=== PATIENT | male | born 1940 | race Caucasian/White ===

== ENCOUNTER 2017-04-10 18:16 | Emergency (ER) | payer MEDICARE, OTHER ==
[~2017-04-10] VITALS: Ht 172.7 cm; Wt 80.0 kg
[2017-04-10 18:18] VITALS: Ht 172.7 cm; Wt 80.0 kg
[2017-04-10 21:42] VITALS: TEMP 97.8
[2017-04-10] MEDS ORDERED: ALTEPLASE (CATHFLO) 2 MG INJ CATHETER ONE ×2 (22:00)
[2017-04-10] MEDS ORDERED: HEPARIN (100 UNITS/ML) 5 ML SYG CATHETER ONE ×2 (23:30)
[2017-04-11 00:27] VITALS: BP 109/59; PULSE 66; RESP 16
--- NOTE | 2017-04-11 01:35 | ERD ---
ER Documentation Chief Complaint Chief Complaint DIALYIS CATHETER NOT WORKING HPI 76-year-old male sent from dialysis for malfunctioning analysis catheter. Patient has a permanently placed dialysis catheter his left upper chest. Dialysis was completed however the dialysis nurse told him that it was slow because there is something possibly wrong with his catheter. He has had no fevers chills, shortness of breath and no other symptoms. He has had no pain at the site. ROS All systems reviewed and are negative except as per history of present illness. PMhx/Soc Anesthesia Reaction: No Hx Neurological Disorder: No Hx Respiratory Disorders: No Hx Cardiac Disorders: No Hx Psychiatric Problems: No Hx Alcohol Use: No Hx Substance Use: No Hx Tobacco Use: No Smoking Status: Never smoker Physical Exam Vitals Vital Signs Date Time Temp Pulse Resp B/P Pulse Ox O2 Delivery O2 Flow Rate FiO2 04/11/17 00:27 66 16 109/59 92 Room Air 04/10/17 21:42 97.8 78 16 105/71 98 Room Air 04/10/17 18:18 98.1 82 19 103/64 99 Physical Exam Const: [] No distress Head: Atraumatic Eyes: Normal Conjunctiva ENT: Normal External Ears, Nose and Mouth. Neck: Full range of motion..~ No meningismus. Resp: Clear to auscultation bilaterally Cardio: Regular rate and rhythm, no murmurs Skin: No petechiae or rashes Ext: No cyanosis, trace bilateral pedal edema, plus distal pulses intact all 4 extremities. Dialysis access site in upper chest clean dry and intact. No signs of infection Neur: Awake and alert and oriented 3, no focal deficits Psych: Normal Mood and Affect Results 24 hrs Current Medications Medications (Trade) Dose Ordered Sig/Cortes Route PRN Reason Start Time Stop Time Status Last Admin Dose Admin Alteplase, Recombinant (Cathflo (Activase)) 2 mg ONCE ONCE CATHETER 04/10/17 22:00 04/10/17 22:01 DC 04/10/17 22:08 Alteplase, Recombinant (Cathflo (Activase)) 2 mg ONCE ONCE CATHETER 04/10/17 22:00 04/10/17 22:01 DC 04/10/17 22:09 Heparin Sodium (Porcine) (Heparin Flush (100 Units/ml)) 500 unit ONCE ONCE CATHETER 04/10/17 23:30 04/10/17 23:31 DC 04/11/17 00:13 Heparin Sodium (Porcine) (Heparin Flush (100 Units/ml)) 500 unit ONCE ONCE CATHETER 04/10/17 23:30 04/10/17 23:31 DC 04/11/17 00:15 Procedures/MDM Functioning catheter after treatment in ER. Cathflo was placed into both ports of dialysis. After that the dialysis access site flushed well and had excellent blood return with no evident obstruction. Heparin was placed in both catheter sites. The patient is being discharged as currently his dialysis access is functioning very well. Dialysis was completed earlier today. Patient is in stable condition. Primary care follow-up in the next couple of days. Departure Diagnosis: Primary Impression: Complication of vascular access for dialysis Condition: Stable Patient Instructions: Dialysis Access Referrals: ANTONIO GUTIERREZ MD (PCP) Additional Instructions: Call your primary care doctor TOMORROW for an appointment during the next 1-2 days.See the doctor sooner or return here if your condition worsens before your appointment time. HAIR HOLLIDAY DO Apr 11, 2017 01:35
== END 2017-04-11 01:50 | disposition home or self-care (01) ==
LOC: E/R 18:16
DX: T82.49XA Other complication of vascular dialysis catheter, initial encounter (principal); Y65.8 Other specified misadventures during surgical and medical care
CPT/HCPCS: 99282; J1642; J2997

== ENCOUNTER 2017-04-12 19:46 | Inpatient (IN) | payer MEDICARE, OTHER ==
[~2017-04-12] VITALS: Ht 170.2 cm; Wt 76.8 kg
[2017-04-13] VITALS (30 sets, daily range): BP systolic 77–148; BP diastolic 45–88; PULSE 56–77; RESP 15–26; Ht 170.2 cm; Wt 76.8 kg
--- NOTE | 2017-04-13 00:24 | ERD ---
ER Documentation Chief Complaint Chief Complaint dialysis catheter not working right maicol catheter-call Li ma [facility] The patient is a 76-year-old male, presenting to the ER because of non- functional right chest hemodialysis catheter. He was seen 2 days ago for similar complaint. He came from dialysis today because he was unable to have dialysis due to nonworking catheter. He is a very poor historian, denies headache, neck pain, chest pain, dyspnea, abdominal pain, vomiting ROS All systems reviewed and are negative except as per history of present illness. Medications Home Meds Reported Medications Finasteride* (Finasteride*) 5 Mg Tablet, 5 MG PO DAILY, TAB 04/13/17 Oxybutynin Chloride* (Ditropan* XL) 10 Mg Tab.er.24, 10 MG PO DAILY, TAB.SA 04/13/17 Omeprazole* (Omeprazole*) 20 Mg Capsule.dr, 20 MG PO DAILY, #30 CAP 04/13/17 Losartan-Hydrochlorothiazide (Losartan-HCTZ) 50-12.5 Mg Tab, 1 TAB PO DAILY, TAB 04/13/17 Amlodipine Besylate* (Amlodipine Besylate*) 10 Mg Tablet, 10 MG PO DAILY, #30 TAB 04/13/17 Furosemide* (Furosemide*) 20 Mg Tablet, 20 MG PO DAILY, #60 TAB 04/13/17 Levothyroxine Sodium* (Levothyroxine Sodium*) 50 Mcg Tablet, 50 MCG PO BEFORE BREAKFAST, #30 TAB 04/13/17 Hydralazine Hcl* (Hydralazine Hcl*) 25 Mg Tab, 25 MG PO Q6, #120 TAB 04/13/17 Allergies Allergies: Coded Allergies: No Known Allergy (Unverified , 04/12/17) PMhx/Soc Anesthesia Reaction: No Hx Neurological Disorder: No Hx Respiratory Disorders: No Hx Cardiac Disorders: No Hx Psychiatric Problems: No Hx Alcohol Use: No Hx Substance Use: No Hx Tobacco Use: No Physical Exam Vitals Vital Signs Date Time Temp Pulse Resp B/P Pulse Ox O2 Delivery O2 Flow Rate FiO2 04/13/17 03:40 78 20 98/57 95 Nasal Cannula 2.0 04/13/17 03:33 94 2.0 28 04/13/17 03:33 59 20 94 Nasal Cannula 2.0 28 04/13/17 01:40 Nasal Cannula 2 04/13/17 00:30 72 18 110/67 95 Nasal Cannula 2.0 04/12/17 19:58 97.8 88 20 101/60 97 Physical Exam Const: No acute distress. Head: Atraumatic. Eyes: Normal Conjunctiva. ENT: Normal External Ears, Nose and Mouth. Neck: Full range of motion. No meningismus. Resp: Basilar crackle Cardio: Regular rate and rhythm. Abd: Soft, non distended, normal bowel sounds, non tender. Skin: No petechiae or rashes. Back: No midline or flank tenderness. Ext: No cyanosis, or edema. Neur: Awake and alert. No focal deficit Psych: Limited due to his condition Result Diagram: 04/13/1720904/13/17209 Results 24 hrs Laboratory Tests Test 04/13/17 02:10 White Blood Count 12.410^3/ul Red Blood Count 2.4510^6/ul Hemoglobin 6.9g/dl Hematocrit 21.8% Mean Corpuscular Volume 89.0fl Mean Corpuscular Hemoglobin 28.2pg Mean Corpuscular Hemoglobin Concent 31.7g/dl Red Cell Distribution Width 17.4% Platelet Count 87573^3/UL Mean Platelet Volume 9.8fl Neutrophils % 80.3% Lymphocytes % 8.2% Monocytes % 10.2% Eosinophils % 0.3% Basophils % 0.3% Nucleated Red Blood Cells % 0.0/100WBC Neutrophils # 10.010^3/ul Lymphocytes # 1.010^3/ul Monocytes # 1.310^3/ul Eosinophils # 0.010^3/ul Basophils # 0.010^3/ul Nucleated Red Blood Cells # 0.010^3/ul Prothrombin Time 14.7Sec Prothrombin Time Ratio 1.1 INR International Normalized Ratio 1.13 Activated Partial Thromboplast Time 41.9Sec Sodium Level 135mmol/L Potassium Level 5.9mmol/L Chloride Level 100mmol/L Carbon Dioxide Level 19mmol/L Anion Gap 22 Blood Urea Nitrogen 88mg/dl Creatinine 10.70mg/dl Glucose Level 71mg/dl Calcium Level 8.2mg/dl Current Medications Medications (Trade) Dose Ordered Sig/Cortes Route PRN Reason Start Time Stop Time Status Last Admin Dose Admin Dextrose/Sodium Chloride (D5-1/2ns) 1,000 ml @ 40 mls/hr Q24H IV 04/13/17 01:30 04/13/17 01:33 Sodium Polystyrene Sulfonate (Kayexalate) 30 gm ONCE ONCE PO 04/13/17 03:28 04/13/17 03:29 DC 04/13/17 03:43 Albuterol (Proventil 0.5% (Neb)) 15 mg ONCE ONCE INH 04/13/17 03:28 04/13/17 03:29 DC 04/13/17 03:33 Insulin Human Regular (Humulin R) 10 unit ONCE ONCE IV 04/13/17 03:28 04/13/17 03:29 DC 04/13/17 03:46 Dextrose (D50w Syringe) 50 ml ONCE ONCE IV 04/13/17 03:30 04/13/17 03:31 DC 04/13/17 03:44 Procedures/MDM [place] [id number] Radiology Main Line: [phone] DIAGNOSTIC IMAGING REPORT Patient: GUME HOWE : 1940 Age: 76 Sex: M MR #: [id number] DOS: 04/13/17 0101 Ordering MD: MOUSTAPHA VANEGAS MD Location: E/R Room/Bed: PROCEDURE: XR Chest. CLINICAL INDICATION: Chest pain TECHNIQUE: Single frontal view of the chest. COMPARISON: None. FINDINGS: Right central venous double-lumen dialysis catheter in place with tip in the superior vena cava right atrial junction. Cardiomegaly with atherosclerotic calcifications in the thoracic aorta. Pulmonary mass congestion and bilateral patchy air space disease with small bilateral pleural effusions. No signs of pleural fluid or pneumothorax are seen. The osseous structures and soft tissues are unremarkable. IMPRESSION: Moderate failure versus volume overload. RPTAT: [facility] Physician Cindy Date Time Electronically viewed and signed by Physician Cindy on 04/13/2017 01:42 RS/ CC: MOUSTAPHA VANEGAS MD EKG: Read by emergency physician Rate/Rhythm: Normal Sinus Rhythm 71 beats/min QRS, ST, T-waves: No ST elevation, no T inversion, PAC, PVC, LAD, low voltage Impression: Abnormal EKG MEDICAL MAKING DECISION: The patient is a 76-year-old male, presenting with acute fluid overload, acute hypokalemia, anemia. He was treated with 2 amp D50 IV, 10 units of regular insulin IV, Dilaudid 10 mg nebulizer, Kayexalate 30 g p.o. for acute hyperkalemia, unit of packed red blood cell for acute anemia The differential diagnoses for acute fluid overload considered include but are not limited to asthma, COPD, pneumonia, pulmonary embolus, pleural effusion, congestive heart failure. The differential diagnoses fpr acute anemia considered include but are not limited to gastritis, peptic ulcer disease, esophageal varices, Trina-Pérez tear, carcinoma, polyp, hemorrhoid, fissure, diverticulosis, angiodysplasia Critical Care: Time: 35 minutes excluding all billable procedures. Treatments/Evaluations: Close monitoring and treatment of unstable vital signs, cardiorespiratory, and neurologic status, while maintaining tight balance of fluid, respiratory, and cardiac interventions. . Departure Diagnosis: Primary Impression: Fluid overload Additional Impressions: Hyperkalemia Anemia Condition: Stable Comments I discussed the findings with the patient. I discussed the patient with the hospitalist Dr. Mcintyre at 3:30 AM who was made aware of the lab, the treatment, the patient condition. The patient is admitted to Tel Disclaimer: Inadvertent spelling and grammatical errors are likely due to EHR/ dictation software use and do not reflect on the overall quality of patient care. Also, please note that the electronic time recorded on this note does not necessarily reflect the actual time of the patient encounter. MOUSTAPHA VANEGAS MD Apr 13, 2017 00:24
[2017-04-13] MEDS: DEXTROSE 5%-0.45% NACL 1,000 ML IV SCH (01:33)
--- NOTE | 2017-04-13 01:43 | RADRPT ---
PROCEDURE: XR Chest. CLINICAL INDICATION: Chest pain TECHNIQUE: Single frontal view of the chest. COMPARISON: None. FINDINGS: Right central venous double-lumen dialysis catheter in place with tip in the superior vena cava righ t atrial junction. Cardiomegaly with atherosclerotic calcifications in the thoracic aorta. Pulmonary mass congestion an d bilateral patchy air space disease with small bilateral pleural effusions. No signs of pleural flu id or pneumothorax are seen. The osseous structures and soft tissues are unremarkable. IMPRESSION: Moderate failure versus volume overload. RPTAT: [facility] Physician Cindy Date Time Electronically viewed and signed by Physician Cindy on 04/13/2017 01:42 RS/
[2017-04-13 02:23] LABS: ABNORMAL IP MESSAGE 1; HEMATOCRIT 21.8 % (42.0-52.0); MEAN CORPUSCULAR HEMOGLOBIN 28.2 pg (29.0-33.0); MEAN CORPUSCULAR HGB CONC 31.7 g/dl (32.0-37.0); MEAN PLATELET VOLUME 9.8 fl (7.4-10.4); PLATELET COUNT 440 10^3/UL (140-415); POSITIVE DIFF @See below; RED BLOOD COUNT 2.45 10^6/ul (4.70-6.10); RED CELL DISTRIBUTION WIDTH 17.4 % (11.5-14.5); WHITE BLOOD COUNT 12.4 10^3/ul (4.8-10.8)
[2017-04-13 02:36] LABS: HEMOGLOBIN 6.9 g/dl (14.0-18.0)
[2017-04-13 02:41] LABS: BASOPHILS % 0.3 % (0.0-2.0); CALCIUM 8.2 mg/dl (8.4-10.2); CREATININE 10.7 mg/dl (0.61-1.24); EOSINOPHILS % 0.3 % (0.0-7.0); INR 1.13; LYMPHOCYTES % 8.2 % (15.0-51.0); MONOCYTE # 1.3 10^3/ul (0.3-0.9); MONOCYTES % 10.2 % (0.0-11.0); NEUTROPHILS % 80.3 % (39.0-77.0); POTASSIUM 5.9 mmol/L (3.5-5.1); PROTIME 14.7 Sec (11.9-14.9); PT RATIO 1.1
[2017-04-13 02:42] LABS: PARTIAL THROMBOPLASTIN TIME 41.9 Sec (25.0-35.0)
[2017-04-13] MEDS ORDERED: ALBUTEROL 0.5% (NEB) 2.5 MG/0.5 ML AMP INH ONE (03:28)
[2017-04-13] MEDS ORDERED: NA POLYST SULFON 15 GM/60 ML BTL PO ONE (03:28)
[2017-04-13] MEDS ORDERED: INSULIN REGULAR, HUMAN 100 UNIT/1 ML 3ML VIAL IV ONE (03:28)
[2017-04-13] MEDS ORDERED: DEXTROSE 50% 50 ML SYRINGE IV ONE ×2 (03:30→04:00)
[2017-04-13] MEDS ORDERED: FURO20TA3 PO (04:07)
[2017-04-13] MEDS ORDERED: LEVO50TA74 PO (04:07)
[2017-04-13] MEDS ORDERED: FINA5TAB4 PO (04:07)
[2017-04-13] MEDS ORDERED: LOSA1TAB22 PO (04:07)
[2017-04-13] MEDS ORDERED: HYDR-3671 PO (04:07)
[2017-04-13] MEDS ORDERED: AMLO-147 PO (04:07)
[2017-04-13] MEDS ORDERED: OXYB10TA6 PO (04:07)
[2017-04-13] MEDS ORDERED: OMEP20CA16 PO (04:07)
[2017-04-13] MEDS ORDERED: NACL 0.9% 3 ML SYG IV SCH (05:00)
[2017-04-13] MEDS ORDERED: ONDANSETRON 4 MG INJ IV PRN ×2 (05:00→15:00)
[2017-04-13] MEDS ORDERED: ACETAMINOPHEN 325 MG TAB PO PRN (05:00)
[2017-04-13] MEDS ORDERED: ALBUTEROL/IPRATROPIUM (NEB) 3 ML AMP HHN PRN (05:00)
[2017-04-13] MEDS ORDERED: morphine 2 MG INJ IV PRN (05:00)
[2017-04-13 06:36] LABS: ABNORMAL IP MESSAGE 1; HEMATOCRIT 21.5 % (42.0-52.0); MEAN CORPUSCULAR HEMOGLOBIN 28.3 pg (29.0-33.0); MEAN CORPUSCULAR HGB CONC 31.2 g/dl (32.0-37.0); MEAN CORPUSCULAR VOLUME 90.7 fl (82.0-101.0); MEAN PLATELET VOLUME 8.9 fl (7.4-10.4); PLATELET COUNT 447 10^3/UL (140-415); POSITIVE DIFF @See below; RED BLOOD COUNT 2.37 10^6/ul (4.70-6.10); RED CELL DISTRIBUTION WIDTH 17.4 % (11.5-14.5); WHITE BLOOD COUNT 11.5 10^3/ul (4.8-10.8)
[2017-04-13 06:48] LABS: HEMOGLOBIN 6.7 g/dl (14.0-18.0)
[2017-04-13 07:10] LABS: ALBUMIN 2.4 g/dl (3.3-4.9); ALBUMIN/GLOBULIN RATIO 0.66; CALCIUM 8.4 mg/dl (8.4-10.2); CREATININE 11.6 mg/dl (0.61-1.24); MAGNESIUM 2.2 mg/dl (1.7-2.5)
[2017-04-13 07:13] LABS: POTASSIUM 5.1 mmol/L (3.5-5.1)
[2017-04-13 07:16] LABS: IRON < 10 ug/dl (35-150)
[2017-04-13 08:15] LABS: TOTAL IRON BINDING CAPACITY 146 ug/dl (241-421)
[2017-04-13] MEDS ORDERED: SOD CHLORIDE 0.9% 250 ML IV* ONE (08:24)
[2017-04-13] MEDS: FINASTERIDE 5 MG TAB PO SCH (09:00)
[2017-04-13] MEDS: OXYBUTYNIN (XL) 5 MG TAB PO SCH (09:00)
[2017-04-13] MEDS: AMLODIPINE 10 MG TAB PO SCH (09:00)
--- NOTE | 2017-04-13 09:26 | HP ---
Date/Time of Note Date/Time of Note DATE: 04/13/17 TIME: 09:17 Assessment/Plan Lines/Catheters IV Catheter [facility] (from [facility]): Saline Lock Assessment/Plan Assessment/Plan 1. Dialysis catheter malfunction -Surgery and nephrology consult 2. ESRD on HD: Reportedly no dialysis for 5 days -Will be dialyzed after dialysis access is established 3. Hyperkalemia: Secondary to above -Correct as needed 4. Normocytic anemia -Transfuse blood -Check ferritin, iron and FOBT -Epogen per nephrology 5. Hypothyroidism Continue Synthroid HPI/ROS Admit Date/Time Admit Date/Time Apr 13, 2017 at 03:42 Hx of Present Illness This is a 76-year-old male with a history of hypertension, hypothyroidism, ESRD on HD who was sent to the ER for dialysis catheter malfunction. Reportedly patient has not had a dialysis for 5 days. When he presented to the ER, potassium 5.9, BUN 88, creatinine 10.7, hemoglobin 8.9, bicarb 19. Chest x-ray showed Moderate failure versus volume overload. Patient is a little upset that the he is admitted. He said he was actually fully dialyzed the other day but according to SNF he was not dialyzed for about 5 days. PMH/Family/Social Social History Smoking Status: Never smoker Exam/Review of Systems Vital Signs Vitals Vital Signs Date Time Temp Pulse Resp B/P Pulse Ox O2 Delivery O2 Flow Rate FiO2 04/13/17 06:59 98.5 62 18 99/50 95 Nasal Cannula 04/13/17 03:40 2.0 04/13/17 03:33 28 Exam Constitutional: alert, oriented, other (Appears slightly agitated) Head: atraumatic, normocephalic Eyes: PERRL Respiratory: diminished breath sounds Cardiovascular: regular rate and rhythm Gastrointestinal: non-tender, soft Extremities: normal pulses Labs Result Diagram: 04/13/1744 04/13/1744 Medications Medications Current Medications Dextrose/Sodium Chloride (D5-1/2ns) 1,000 ml @ 40 mls/hr Q24H IV Last administered on 04/13/17t 01:33; Admin Dose 40 MLS/HR; Start 04/13/17 at 01:30 Ondansetron HCl (Zofran Inj) 4 mg Q6H PRN IV NAUSEA AND/OR VOMITING; Start at 05:00 Acetaminophen (Tylenol Tab) 650 mg Q6H PRN PO PAIN LEVEL 1-3 OR FEVER; Start 04/13/17 at 05:00 Morphine Sulfate (morphine) 2 mg Q4H PRN IV PAIN LEVEL 7-10; Start 04/13/17 at 05:00 Amlodipine Besylate (Norvasc) 10 mg DAILY PO ; Start 04/13/17 at 09:00 Finasteride (Proscar) 5 mg DAILY PO ; Start 04/13/17 at 09:00 Hydralazine HCl (Apresoline) 25 mg Q6 PO ; Start 04/13/17 at 06:00 Oxybutynin Chloride (Ditropan Xl) 10 mg DAILY PO ; Start 04/13/17 at 09:00 Pantoprazole (Protonix Tab) 40 mg DAILY@06 PO ; Start 04/14/17 at 06:00 Furosemide (Lasix) 40 mg DAILY@06 IV ; Start 04/13/17 at 06:00 LUIS ASHFORD MD Apr 13, 2017 09:26
[2017-04-13 09:51] LABS: ANISOCYTOSIS 1+ (0-0); MONOCYTES % (M) 9 % (0-11); PLATELET ESTIMATE NORMAL; POIKILOCYTOSIS 3+ (0-0); POLYCHROMASIA 3+ (0-0); REACTIVE LYMPHOCYTES% (M) 2 % (0-0)
[2017-04-13] MEDS: FUROSEMIDE 40 MG INJ IV SCH (10:02)
[2017-04-13] MEDS: LEVOTHYROXINE 50 MCG TAB PO SCH (10:16)
--- NOTE | 2017-04-13 10:38 | CONS ---
Date/Time of Note Date/Time of Note DATE: 04/13/17 TIME: 10:38 Assessment/Plan Assessment/Plan Additional Assessment/Plan 1. Acute Hyperkalemia due to missed HD x 5 days 2. Dialysis catheter malfunction- missed HD for 5 days 2. Severe Anemia with Hb 6.3- possible GI bleeding 3. ESRD on HD MWF 4. HTN 5. HL 6. 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 h/o Hypothyroidism Plan: plan is to exchange permacath today Plan is to HD today with 2 units pRBC BP stable afebrile GI consult to see pt Thanks for consultation, we will conitnue to follow up on patient Consultation Date/Type/Reason Admit Date/Time Apr 13, 2017 at 03:42 Date of Consultation: Apr 13, 2017 Type of Consultation: NEPHROLOGY Reason for Consultation Non functioning HD catherer, No HD x 5 days, missed HD Referring Provider: LUIS ASHFORD MD Hx of Present Illness 76-year-old male with a history of hypertension, hypothyroidism, ESRD on HD who was sent to the ER for dialysis catheter malfunction. Reportedly patient has not had a dialysis for 5 days. When he presented to the ER, potassium 5.9, BUN 88, creatinine 10.7, hemoglobin 8.9, bicarb 19. Chest x-ray showed Moderate failure versus volume overload. Patient is a little upset that the he is admitted. He said he was actually fully dialyzed the other day but according to SNF he was not dialyzed for about 5 days. plan is to do replacement of permacth then HD after that . Constitutional: no complaints Eyes: no complaints ENT: no complaints Respiratory: no complaints Cardiovascular: no complaints Gastrointestinal: no complaints Genitourinary: no complaints Musculoskeletal: no complaints Skin: no complaints Neurologic: no complaints Endocrine: no complaints Lymphatic: no complaints Psychological: no complaints Immunologic: no complaints Past Medical History Medical History: coronary artery disease, high cholesterol, hypertension, other (ESRD on HD , prosate CA S/p TURP ) Past Surgical History Past Surgical Hx: other (TURP, Permacath access) Family History Significant Family History: no pertinent family hx Social History Alcohol Use: none Smoking Status: Never smoker Drug Use: none Exam/Review of Systems Vital Signs Vitals Vital Signs Date Time Temp Pulse Resp B/P Pulse Ox O2 Delivery O2 Flow Rate FiO2 04/13/17 06:59 98.5 62 18 99/50 95 Nasal Cannula 04/13/17 03:40 2.0 04/13/17 03:33 28 Exam Constitutional: alert Psych: no complaints Head: normocephalic Eyes: nl conjunctiva ENMT: nl external ears & nose Neck: non-tender, supple Respiratory: clear to auscultation, diminished breath sounds, normal air movement Cardiovascular: nl pulses, regular rate and rhythm Gastrointestinal: non-tender, soft Musculoskeletal: nl extremities to inspection, nl gait and stance Extremities: normal pulses Neurological: ONCOLOGY RN II-XII intact, nl mental status, nl speech, nl strength Skin: nl turgor Results Result Diagram: 04/13/1744 04/13/17 0544 Results 24 hrs Laboratory Tests Test 04/13/17 02:10 04/13/17 05:44 White Blood Count 12.4 H 11.5 H Red Blood Count 2.45 L 2.37 L Hemoglobin 6.9 *L 6.7 *L Hematocrit 21.8 L 21.5 L Mean Corpuscular Volume 89.0 90.7 Mean Corpuscular Hemoglobin 28.2 L 28.3 L Mean Corpuscular Hemoglobin Concent 31.7 L 31.2 L Red Cell Distribution Width 17.4 H 17.4 H Platelet Count 440 H 447 H Mean Platelet Volume 9.8 8.9 Neutrophils % 80.3 H Lymphocytes % 8.2 L Monocytes % 10.2 Eosinophils % 0.3 Basophils % 0.3 Nucleated Red Blood Cells % 0.0 0.0 Neutrophils # 10.0 H Lymphocytes # 1.0 Monocytes # 1.3 H Eosinophils # 0.0 Basophils # 0.0 Nucleated Red Blood Cells # 0.0 Prothrombin Time 14.7 Prothrombin Time Ratio 1.1 INR International Normalized Ratio 1.13 Activated Partial Thromboplast Time 41.9 H Sodium Level 135 137 Potassium Level 5.9 H 5.1 Chloride Level 100 98 Carbon Dioxide Level 19 L 19 L Anion Gap 22 H 25 H Blood Urea Nitrogen 88 H 88 H Creatinine 10.70 H 11.60 H Glucose Level 71 90 Calcium Level 8.2 L 8.4 Segmented Neutrophils % (Manual) 76 Band Neutrophils % (Manual) 11 H Lymphocytes % (Manual) 2 L Reactive Lymphocytes % (Manual) 2 H Monocytes % (Manual) 9 Neutrophils # (Manual) 8.9 H Band Neutrophils # 1.2 H Absolute Lymphocytes (Manual) 0.2 L Reactive Lymphocytes # 0.2 H Absolute Monocytes (Manual) 1.0 H Platelet Estimate NORMAL Polychromasia 3+ Poikilocytosis 3+ Anisocytosis 1+ Magnesium Level 2.2 Iron Level < 10 L Total Iron Binding Capacity 146 L Percent Iron Saturation Ferritin 545.0 H Total Bilirubin 0.0 L Direct Bilirubin 0.00 Indirect Bilirubin 0.0 Aspartate Amino Transf (AST/SGOT) 17 Alanine Aminotransferase (ALT/SGPT) 14 Alkaline Phosphatase 104 Total Protein 6.0 L Albumin 2.4 L Globulin 3.60 H Albumin/Globulin Ratio 0.66 Medications Medications Current Medications Dextrose/Sodium Chloride (D5-1/2ns) 1,000 ml @ 40 mls/hr Q24H IV Last administered on 04/13/17 01:33; Admin Dose 40 MLS/HR; Start 04/13/17 at 01:30 Ondansetron HCl (Zofran Inj) 4 mg Q6H PRN IV NAUSEA AND/OR VOMITING; Start at 05:00 Acetaminophen (Tylenol Tab) 650 mg Q6H PRN PO PAIN LEVEL 1-3 OR FEVER; Start 04/13/17 at 05:00 Morphine Sulfate (morphine) 2 mg Q4H PRN IV PAIN LEVEL 7-10; Start 04/13/17 at 05:00 Amlodipine Besylate (Norvasc) 10 mg DAILY PO ; Start 04/13/17 at 09:00 Finasteride (Proscar) 5 mg DAILY PO ; Start 04/13/17 at 09:00 Hydralazine HCl (Apresoline) 25 mg Q6 PO ; Start 04/13/17 at 06:00 Oxybutynin Chloride (Ditropan Xl) 10 mg DAILY PO ; Start 04/13/17 at 09:00 Pantoprazole (Protonix Tab) 40 mg DAILY@06 PO ; Start 04/14/17 at 06:00 Furosemide (Lasix) 40 mg DAILY@06 IV Last administered on 04/13/17 10:02; Admin Dose 40 MG; Start 04/13/17 at 06:00 ANTONIO GUTIERREZ MD Apr 13, 2017 10:38
[2017-04-13 14:27] LABS: HEMATOCRIT 23.7 % (42.0-52.0); HEMOGLOBIN 7.6 g/dl (14.0-18.0)
[2017-04-13] MEDS ORDERED: HEPARIN 1000 UNITS/ML 10 ML INJ ONE ×2 (14:34→15:34)
[2017-04-13] MEDS ORDERED: LIDOCAINE 1% (MPF) 30 ML INJ ONE (14:34)
[2017-04-13] MEDS ORDERED: IOHEXOL 300MG/ML 30 ML BTL ONE (14:42)
[2017-04-13] MEDS ORDERED: FENTAnyl 50 MCG/ML VIAL IV PRN (15:00)
[2017-04-13] MEDS ORDERED: PROPOFOL 0 ML ONE (15:14)
[2017-04-13] MEDS ORDERED: LIDOCAINE 1% (MDV) 20 ML INJ ONE (15:15)
[2017-04-13] MEDS ORDERED: FENTAnyl 50 MCG/ML VIAL ONE (15:15)
[2017-04-13] MEDS ORDERED: MIDAZOLAM 1 MG/ML 2 ML INJ ONE (15:20)
[2017-04-13] MEDS ORDERED: BUPIVACAINE 0.5% (SDV) 30 ML INJ ONE (15:24)
[2017-04-13] MEDS ORDERED: CEFAZOLIN 1 GM INJ ONE (15:26)
--- NOTE | 2017-04-13 16:10 | HPN ---
Date/Time of Note Date/Time of Note DATE: 04/13/17 TIME: 16:10 Interval H&P Admission Note Pt. seen H&P reviewed: No system changes DARLINE CANCINO MD Apr 13, 2017 16:10
--- NOTE | 2017-04-13 16:11 | SIPON ---
Date/Time of Note Date/Time of Note DATE: 04/13/17 TIME: 16:10 Operative Report Preoperative Diagnosis ESRD, CENTRAL STENOSIS, MALFUNCTIONING CATHETER Postoperative Diagnosis SAME Operation/Procedure Performed CENTRAL VENOGRAM, CENTRAL VENOPLASTY, TUNNELLED CATHETER EXCHANGE Surgeon see signature line criminal legal assistant NONE Anesthesia: moderate sedation Estimated blood loss: minimal Transfusion Required none Specimen NONE Grafts/Implants none Complications none DARLINE CANCINO MD Apr 13, 2017 16:11
--- NOTE | 2017-04-13 17:52 | CONS ---
DATE OF ADMISSION: 04/13/2017 DATE OF CONSULTATION: 04/13/2017 TYPE OF CONSULTATION: Vascular surgery consultation. Dear Doctors: Mr. Castellon is a 76-year-old gentleman known to our his vascular surgery service with a history of end- stage renal disease on hemodialysis in which he had a recent right chest wall catheter exchanged at an outside hospital. It seems that the patient had a new presentation with a catheter malfunction. The patient unfortunately had not received dialysis for about 5 days and required emergent evaluati on for a new catheter placement and dialysis. Vascular surgery consultation was obtained for furthe r evaluation. Also, the patient has a recent diagnosis of cancer that is being managed as an outpat ient. REVIEW OF SYSTEMS: A 14-point review performed and negative except what is mentioned in the HPI. T he patient currently complains of difficulty breathing, denies chest pain, no nausea, vomiting, feve r or chills. Denies upper or lower extremity claudication or rest pain-like symptoms at the moment. PAST MEDICAL HISTORY: Entails hypertension, hypothyroidism, end-stage renal disease on hemodialysis , anemia of chronic disease, pulmonary hypertension, bilateral lower extremity atherosclerosis. The patient has a history of metastatic prostate cancer in which he had undergone prostatectomy and on chemotherapy at the moment. PAST SURGICAL HISTORY: Multiple chest wall catheters, prostatectomy. FAMILY HISTORY: Positive for hypertension. SOCIAL HISTORY: active currently a smoker. Denies illicit drug use, alcohol abuse. PHYSICAL EXAMINATION: GENERAL: Alert and oriented x3, no apparent distress. HEENT: Normocephalic, atraumatic. Poor dentition. Mucosa moist. NECK: Supple. No carotid bruit. PULMONARY: Crackles at the bases with coarse breath sounds bilaterally. CARDIOVASCULAR: S1, S2 present. No murmurs. ABDOMEN: Soft, nontender, nondistended. Bowel sounds positive. Surgical scar well healed. EXTREMITIES: Lower extremities, palpable femoral pulse, nonpalpable pedal pulse. Motor, sensory in tact. Cap refill 3 to 4 seconds. No ulcers identified. Right chest wall catheter intact and nonfunctional, no erythema or pus identified. ASSESSMENT AND PLAN: End-stage renal disease and central stenosis: It seems the patient's catheter has malfunctioned and patient unfortunately has not received dialysis for 5 days. Further, the pat ient is noncompliant and sometimes challenging, as he does not necessarily follow recommendations an d take care of his health. The patient has been a smoker also in the past and upon our previous isreal luation at outside hospital, patient had significant central stenosis in which he had underwent cent ral venoplasty and intervention at that time. Unfortunately, the patient seems to have a catheter m alfunction which is unclear if the patient has been, after his dialysis sessions, receiving adequate flushing of the catheter with saline and adequate heparin not being placed in the ports at his dial ysis center. We will plan to schedule the patient for an emergent permanent catheter hemodialysis evaluation and exchange, possible central venoplasty. Optimize vascular status (BP meds, diet, nutrition, exercise, sugar control, antiplatelets). I discussed the importance of compliance and smoking cessation and all the necessary information has been provided for the patient. Discussed findings, plan and management with the patient and all that is involved patient understood and has agreed to proceed. Total spent time was greater than 25 minutes. Thank you for allowing us to partake in the care of your patient. Please call with any questions. Dictated By: DARLINE KING/EMILIA Conf#: [id number] DID#: [id number] CC: LUIS ASHFORD MD;*EndCC*
--- NOTE | 2017-04-13 17:52 | CONS ---
DATE OF ADMISSION: 04/13/2017 DATE OF CONSULTATION: TYPE OF CONSULTATION: Gastroenterology. REFERRING PHYSICIAN: Dr. Antonio Gutierrez. Dear Antonio: HISTORY OF PRESENT ILLNESS: Thank you for asking me to evaluate the patient who is 76-year-old male with a history of hypertension, hypothyroidism, end-stage renal disease on dialysis, comes to the E R for malfunctioning of the dialysis catheter. The patient has not had a dialysis for the last 5 da ys. When he arrived in the ER, his BUN was 88, creatinine was 10.5 and his hemoglobin was low. GI consult was called in for severe anemia. The patient is not a very good historian, but he denied of any abdominal pain, no nausea, no vomiting, no GI bleeding, no hematemesis. No chest pain or short ness of breath. SOCIAL HISTORY: No history of smoking or alcohol consumption. REVIEW OF SYSTEMS: Negative. PHYSICAL EXAMINATION: GENERAL: Well-built, nourished, not in distress. VITAL SIGNS: Stable. HEENT: Unremarkable. NECK: Supple, no thyromegaly, no lymphadenopathy. CARDIOVASCULAR: No murmur, gallop or click. LUNGS: Clear. ABDOMEN: Benign. EXTREMITIES: No edema. CENTRAL NERVOUS SYSTEM: Grossly within normal limits. LABORATORY DATA: INR is normal, hematocrit is 21.5. WBC is 11.5, platelet count normal, normochrom ic normocytic pattern. BUN is 88, creatinine is 11.6. Iron saturation is low. Ferritin was 545. IMPRESSION: 1. Anemia needs to be ruled out, whether it is anemia of chronic disease or due to the occult gastr ointestinal bleeding. 2. Renal failure on hemodialysis, did not have dialysis for the last 5 days. 3. Hypertension. 4. Malfunctioning of the dialysis catheter. 5. Hypothyroidism. PLAN: Transfuse 1 unit of packed cell RBC, change of the dialysis catheter and work him up for anem ia. In the interim, place empirically on PPI and will follow the patient. Dictated By: JEANNETTE NTAH/NTS Conf#: [id number] DID#: [id number] CC: ANTONIO GUTIERREZ MD; LUIS ASHFORD MD;*EndCC*
--- NOTE | 2017-04-13 17:52 | OPR ---
DATE OF OPERATION: 04/13/2017 PREOPERATIVE DIAGNOSIS: End-stage renal disease, central stenosis and occlusion and malfunctioning right chest wall catheter. POSTOPERATIVE DIAGNOSIS: End-stage renal disease, central stenosis and occlusion and malfunctioning right chest wall catheter. ANESTHESIA: Local with moderate sedation. ESTIMATED BLOOD LOSS: Minimal. COMPLICATIONS: None. HEPARIN: As recorded. CONTRAST: As recorded. ACCESS: Right internal jugular vein. CLOSURE: Manual compression and 3-0 nylon suture. INDICATIONS: This is a 76-year-old gentleman who had presented to us with a history of end-stage re nal disease on hemodialysis and noncompliance, in which he had developed malfunctioning catheter ove r the past week. The patient has not received dialysis for about 5 days and had required an emergen t evaluation for possible catheter exchange and being able to undergo dialysis. The patient at the moment has hyperkalemia and is also under chemotherapy from his recent metastatic prostate cancer. Therefore, alternatives, risk and benefits were discussed with the patient and he has agreed to proc eed, understanding all that is involved. Risks including but not limited to bleeding, thrombosis, e mbolization, myocardial infarction, , stroke, device malfunction, infection, nephrotoxicity, or pneumothorax, and the patient has agreed to proceed. PROCEDURE: 1. SVC venogram. 2. Catheter-directed access of the SVC. 3. Venoplasty of the right internal jugular vein, right brachiocephalic vein, right superior vena c peter (multiple venous angioplasties). 4. Tunneled permanent hemodialysis catheter exchange. 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 DESCRIPTION OF PROCEDURE: The patient was brought into the operating room and positioned in supine position on the operating room table. Sedation was administered with our anesthesia colleagues with out any complications. The right chest was then shaved, prepped and draped in usual standard steril e fashion. Time out and appropriate sites were marked and confirmed. Local anesthesia was infiltra ata in the region of the right chest wall. Preoperative antibiotics were already given. At this po int, using the venous port of the catheter, Amplatz wire was placed in the distal superior vena cava . At this point, the catheter was pulled back to the internal jugular vein, subclavian vein junctio n and a central venogram evaluating the SVC was performed. It identified patient having severe sten osis of the right internal jugular vein, right brachiocephalic vein and right superior vena cava in its proximal aspect. Therefore, decision was made to intervene with performing a venoplasty prior t o placement of a new catheter as this could have been the cause of the malfunction of the catheter. Subsequently, the catheter was removed. After the catheter was removed, we went ahead and cleaned the wire with an alcohol prep. All gloves were changed and then we went ahead and used the guiding catheter which was placed in the SVC in order to guide the wire down to the inferior vena cava. Onc e this was performed, a second wire was also placed, performing the same function. At this point, u sing a 12 mm x 60 mm balloon, we performed venoplasty of the right internal jugular vein, right brac hiocephalic vein, and the right superior vena cava. Patient tolerated this aspect of the procedure well. At this point, the balloon was removed and a new PermCath catheter was placed measuring 23 cm . This procedure was done under fluoroscopic guidance with our balloon intervention and our cathete r removal and exchange. The patient tolerated this aspect of the procedure well and was taken to e postanesthesia care unit in stable condition. The catheter was then secured with a 3-0 nylon sutu re. All sponges, needles, catheters and wires counts were correct x2. Dictated By: DARLINE KING/EMILIA Conf#: [id number] DID#: [id number] CC: LUIS ASHFORD MD;*End*
--- NOTE | 2017-04-13 17:52 | RADRPT ---
PROCEDURE: Intraoperative imaging of the chest. CLINICAL INDICATION: Check line placement. TECHNIQUE: Images of the chest were obtained in the operating room with an image intensifier. No radiologist was in attendance. 6images of the chest were obtained with the image intensifier. Flu oroscopy time is 160 seconds. COMPARISON: Chest x-ray done earlier the same day. FINDINGS: Images demonstrate contrast injected through a tunneled dialysis catheter with the tip in the superi or vena cava. 1 of the images has a balloon inflated in the superior vena cava. IMPRESSION: 1. Satisfactory intraoperative imaging of the chest. RPTAT: QQ .Olman Barahona MD, MD Date Time Electronically viewed and signed by .Olman Barahona MD, MD on 04/13/2017 16:34 .R/
[2017-04-13] MEDS ORDERED: ALBUMIN HUMAN 25% 100 ML IV ONE (18:00)
[2017-04-14] VITALS (13 sets, daily range): BP systolic 91–105; BP diastolic 48–65; PULSE 54–75; RESP 17–20
[2017-04-14] MEDS: DEXTROSE 5%-0.45% NACL 1,000 ML IV SCH (01:29)
[2017-04-14] MEDS: FUROSEMIDE 40 MG INJ IV SCH (05:22)
[2017-04-14] MEDS: PANTOPRAZOLE (EC) 40 MG TAB PO SCH (05:23)
[2017-04-14] MEDS: LEVOTHYROXINE 50 MCG TAB PO SCH (05:23)
[2017-04-14 07:04] LABS: RETICULOCYTE COUNT % 1.2 % (0.5-1.5)
[2017-04-14 07:05] LABS: BASOPHIL # 0.1 10^3/ul (0.0-0.1); BASOPHILS % 0.5 % (0.0-2.0); EOSINOPHILS # 0.2 10^3/ul (0.0-0.5); HEMATOCRIT 25.1 % (42.0-52.0); HEMOGLOBIN 8.2 g/dl (14.0-18.0); LYMPHOCYTES % 10.2 % (15.0-51.0); MEAN CORPUSCULAR HEMOGLOBIN 28.1 pg (29.0-33.0); MEAN CORPUSCULAR HGB CONC 32.7 g/dl (32.0-37.0); MEAN PLATELET VOLUME 8.9 fl (7.4-10.4); NEUTROPHIL # 7.6 10^3/ul (1.6-7.5); NEUTROPHILS % 76.5 % (39.0-77.0); PLATELET COUNT 387 10^3/UL (140-415); RED BLOOD COUNT 2.92 10^6/ul (4.70-6.10); RED CELL DISTRIBUTION WIDTH 16.7 % (11.5-14.5); WHITE BLOOD COUNT 9.9 10^3/ul (4.8-10.8)
[2017-04-14 07:36] LABS: CALCIUM 8.2 mg/dl (8.4-10.2); CREATININE 9.01 mg/dl (0.61-1.24)
[2017-04-14 07:43] LABS: IRON 11 ug/dl (35-150)
[2017-04-14 07:46] LABS: TOTAL IRON BINDING CAPACITY 139 ug/dl (241-421)
[2017-04-14] MEDS: AMLODIPINE 10 MG TAB PO SCH (08:09)
[2017-04-14] MEDS: FINASTERIDE 5 MG TAB PO SCH (08:46)
[2017-04-14] MEDS: OXYBUTYNIN (XL) 5 MG TAB PO SCH (08:46)
[2017-04-14] MEDS ORDERED: INFLUENZA VIRUS VACCINE 0.5 ML SYG IM* ONE (09:00)
--- NOTE | 2017-04-14 10:51 | PN ---
Date/Time of Note Date/Time of Note DATE: 04/14/17 TIME: 10:42 Assessment/Plan VTE Prophylaxis VTE Prophylaxis Intervention: SCD's Lines/Catheters IV Catheter Type (from [facility]): Peripheral IV Urinary Cath still in place: No Assessment/Plan Chief Complaint/Hosp Course S: Patient has his PermCath exchange performed yesterday. Also received blood transfusion yesterday. As well as dialysis was performed yesterday. Patient asking about his Percocet medications he apparently takes at the [facility] facility per O: VS (see below) PE: Constitutional: alert, oriented Head: atraumatic, normocephalic Eyes: PERRL Respiratory: less diminished breath sounds Cardiovascular: regular rate and rhythm Gastrointestinal: non-tender, soft Extremities: normal pulses A/P: 76-year-old male with a history of hypertension, hypothyroidism, ESRD on HD who was sent to the ER for dialysis catheter malfunction. 1. Dialysis catheter malfunction -status post replacement by vascular surgery team yesterday. -Continue per renal recommendations dialysis, follow-up surgery and nephrology consult recommendation 2. ESRD on HD: Reportedly no dialysis for 5 days -after getting her placement yesterday received dialysis yesterday -Dialysis per renal recommendations 3. Hyperkalemia: Secondary to above -improving -Correct as needed, dialysis 4. Normocytic anemia -status post PRBC transfusion yesterday -Monitor, consider IV iron as well given low iron levels -Epogen per nephrology 5. Hypothyroidism Continue Synthroid Problems: Exam/Review of Systems Vital Signs Vitals Vital Signs Date Time Temp Pulse Resp B/P Pulse Ox O2 Delivery O2 Flow Rate FiO2 04/14/17 08:06 59 04/14/17 08:00 Nasal Cannula 2.0 04/14/17 07:17 98.6 19 101/57 97 04/13/17 03:33 28 Intake and Output 04/13/17 04/13/17 04/14/17 14:59 22:59 06:59 Intake Total 650 ml 300 ml Output Total 3510 ml Balance -2860 ml 300 ml Results Result Diagram: 04/14/17 0639 04/14/17 0639 Results 24 hrs Laboratory Tests Test 04/13/17 14:18 04/14/17 05:41 04/14/17 06:39 Hemoglobin 7.6 L 8.2 L Hematocrit 23.7 L 25.1 L Lab Scanned Report BLOOD TRANSFUSION White Blood Count 9.9 Red Blood Count 2.92 #L Mean Corpuscular Volume 86.0 Mean Corpuscular Hemoglobin 28.1 L Mean Corpuscular Hemoglobin Concent 32.7 Red Cell Distribution Width 16.7 H Platelet Count 387 Mean Platelet Volume 8.9 Neutrophils % 76.5 Lymphocytes % 10.2 L Monocytes % 10.0 Eosinophils % 2.0 Basophils % 0.5 Nucleated Red Blood Cells % 0.0 Neutrophils # 7.6 H Lymphocytes # 1.0 Monocytes # 1.0 H Eosinophils # 0.2 Basophils # 0.1 Nucleated Red Blood Cells # 0.0 Absolute Reticulocyte Count 0.033 Percent Reticulocyte Count 1.2 Sodium Level 140 Potassium Level 4.0 Chloride Level 100 Carbon Dioxide Level 24 Anion Gap 20 H Blood Urea Nitrogen 60 H Creatinine 9.01 #H Glucose Level 87 Calcium Level 8.2 L Iron Level 11 L Total Iron Binding Capacity 139 L Percent Iron Saturation 8 L Ferritin 486.0 H Vitamin B12 Level 989 H Medications Medications Current Medications Dextrose/Sodium Chloride (D5-1/2ns) 1,000 ml @ 40 mls/hr Q24H IV Last administered on 04/14/17 01:29; Admin Dose 40 MLS/HR; Start 04/13/17 at 01:30 Ondansetron HCl (Zofran Inj) 4 mg Q6H PRN IV NAUSEA AND/OR VOMITING; Start at 05:00 Acetaminophen (Tylenol Tab) 650 mg Q6H PRN PO PAIN LEVEL 1-3 OR FEVER; Start 04/13/17 at 05:00 Morphine Sulfate (morphine) 2 mg Q4H PRN IV PAIN LEVEL 7-10; Start 04/13/17 at 05:00 Amlodipine Besylate (Norvasc) 10 mg DAILY PO ; Start 04/13/17 at 09:00 Finasteride (Proscar) 5 mg DAILY PO Last administered on 04/14/17 08:46; Admin Dose 5 MG; Start 04/13/17 at 09:00 Hydralazine HCl (Apresoline) 25 mg Q6 PO ; Start 04/13/17 at 06:00 Oxybutynin Chloride (Ditropan Xl) 10 mg DAILY PO Last administered on 08:46; Admin Dose 10 MG; Start 04/13/17 at 09:00 Pantoprazole (Protonix Tab) 40 mg DAILY@06 PO Last administered on 04/14/17 05:23; Admin Dose 40 MG; Start 04/14/17 at 06:00 Furosemide (Lasix) 40 mg DAILY@06 IV Last administered on 04/13/17 10:02; Admin Dose 40 MG; Start 04/13/17 at 06:00 ORI SPEAR Apr 14, 2017 10:51
[2017-04-14] MEDS: OXYCODONE/ACETAMINOPHEN (5/325) TAB PO PRN (12:34)
[2017-04-14] MEDS ORDERED: GUAIFENESIN/DM 5ML CUP PO PRN (14:00)
--- NOTE | 2017-04-14 15:04 | RADRPT ---
PROCEDURE: XR Chest. CLINICAL INDICATION: Cough. TECHNIQUE: Single frontal view. COMPARISON: April 13, 2017. FINDINGS: There is a tunneled right internal jugular vein dialysis catheter with the tip in the cavoatrial amparo ction region. There is mild interstitial disease bilaterally consistent with pulmonary edema, unchan ged. Bibasilar atelectasis is unchanged. The lungs are otherwise clear. The heart is mildly enlarged. There is calcification in the aorta consistent with atherosclerosis. There is no pleural effusion. There is no pneumothorax. IMPRESSION: 1. No significant change from the April 13, 2017 chest radiograph. RPTAT: QQ .Olman Barahona MD, MD Date Time Electronically viewed and signed by .Olman Barahona MD, MD on 04/14/2017 15:04 .R/
--- NOTE | 2017-04-14 17:25 | CONS ---
Date/Time of Note Date/Time of Note DATE: 04/14/17 TIME: 17:23 Assessment/Plan Assessment/Plan Additional Assessment/Plan IMPRESSION: 1. Anemia needs to be ruled out, whether it is anemia of chronic disease or due to the occult gastrointestinal bleeding. 2. Renal failure on hemodialysis, did not have dialysis for the last 5 days. 3. Hypertension. 4. Malfunctioning of the dialysis catheter. 5. Hypothyroidism. 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 His anemia might be related to anemia of chronic disease or secondary to metastases in the bone. Awaiting for stool for occult blood Consultation Date/Type/Reason Admit Date/Time Apr 13, 2017 at 03:42 Initial Consult Date 04/13/17 Type of Consultation: NEPHROLOGY Referring Provider: LUIS ASHFORD MD 24 HR Interval Summary Constitutional: no complaints Exam/Review of Systems Vital Signs Vitals Vital Signs Date Time Temp Pulse Resp B/P Pulse Ox O2 Delivery O2 Flow Rate FiO2 04/14/17 16:00 58 04/14/17 15:24 98.4 19 104/58 96 04/14/17 08:00 Nasal Cannula 2.0 04/13/17 03:33 28 Intake and Output 04/13/17 04/13/17 04/14/17 15:00 23:00 07:00 Intake Total 650 ml 300 ml Output Total 3510 ml Balance -2860 ml 300 ml Exam Constitutional: alert, oriented, well developed Psych: nl mood/affect, no complaints Head: atraumatic, normocephalic Eyes: EOMI, PERRL, nl conjunctiva, nl lids, nl sclera ENMT: nl external ears & nose, nl lips & teeth, nl nasal mucosa & septum Neck: non-tender, supple Respiratory: clear to auscultation, normal air movement Cardiovascular: nl pulses, regular rate and rhythm Gastrointestinal: nl liver, spleen, non-tender, soft Musculoskeletal: nl extremities to inspection, nl gait and stance Extremities: normal pulses Neurological: POWDER GUARD II-XII intact, nl mental status, nl speech, nl strength Skin: nl turgor, No rash or lesions Lymph: nl lymph nodes Results Result Diagram: 04/14/17 0639 04/14/17 0639 Results 24 hrs Laboratory Tests Test 04/14/17 05:41 04/14/17 06:39 Lab Scanned Report BLOOD TRANSFUSION White Blood Count 9.9 Red Blood Count 2.92 #L Hemoglobin 8.2 L Hematocrit 25.1 L Mean Corpuscular Volume 86.0 Mean Corpuscular Hemoglobin 28.1 L Mean Corpuscular Hemoglobin Concent 32.7 Red Cell Distribution Width 16.7 H Platelet Count 387 Mean Platelet Volume 8.9 Neutrophils % 76.5 Lymphocytes % 10.2 L Monocytes % 10.0 Eosinophils % 2.0 Basophils % 0.5 Nucleated Red Blood Cells % 0.0 Neutrophils # 7.6 H Lymphocytes # 1.0 Monocytes # 1.0 H Eosinophils # 0.2 Basophils # 0.1 Nucleated Red Blood Cells # 0.0 Absolute Reticulocyte Count 0.033 Percent Reticulocyte Count 1.2 Sodium Level 140 Potassium Level 4.0 Chloride Level 100 Carbon Dioxide Level 24 Anion Gap 20 H Blood Urea Nitrogen 60 H Creatinine 9.01 #H Glucose Level 87 Calcium Level 8.2 L Iron Level 11 L Total Iron Binding Capacity 139 L Percent Iron Saturation 8 L Ferritin 486.0 H Vitamin B12 Level 989 H Medications Medications Current Medications Ondansetron HCl (Zofran Inj) 4 mg Q6H PRN IV NAUSEA AND/OR VOMITING; Start at 05:00 Acetaminophen (Tylenol Tab) 650 mg Q6H PRN PO PAIN LEVEL 1-3 OR FEVER; Start 04/13/17 at 05:00 Morphine Sulfate (morphine) 2 mg Q4H PRN IV PAIN LEVEL 7-10; Start 04/13/17 at 05:00 Amlodipine Besylate (Norvasc) 10 mg DAILY PO ; Start 04/13/17 at 09:00 Finasteride (Proscar) 5 mg DAILY PO Last administered on 04/14/17 08:46; Admin Dose 5 MG; Start 04/13/17 at 09:00 Hydralazine HCl (Apresoline) 25 mg Q6 PO ; Start 04/13/17 at 06:00 Oxybutynin Chloride (Ditropan Xl) 10 mg DAILY PO Last administered on 08:46; Admin Dose 10 MG; Start 04/13/17 at 09:00 Pantoprazole (Protonix Tab) 40 mg DAILY@06 PO Last administered on 04/14/17 05:23; Admin Dose 40 MG; Start 12/24/17 at 06:00 Furosemide (Lasix) 40 mg DAILY@06 IV Last administered on 04/13/17 10:02; Admin Dose 40 MG; Start 04/13/17 at 06:00 Oxycodone/ Acetaminophen (Percocet (5/ 325)) 1 tab Q12H PRN PO PAIN Last administered on 04/14/17 12:34; Admin Dose 1 TAB; Start 04/14/17 at 11:00 Guaifenesin/ Dextromethorphan (Robitussin Dm Liquid Cup) 10 ml Q6H PRN PO COUGH ; Start 04/14/17 at 14:00 JEANNETTE MORALES MD Apr 14, 2017 17:25
--- NOTE | 2017-04-14 23:49 | CONS ---
Date/Time of Note Date/Time of Note DATE: 04/14/17 TIME: 23:40 Assessment/Plan Assessment/Plan Additional Assessment/Plan 1. Acute Hyperkalemia due to missed HD x 5 days 2. Dialysis catheter malfunction- missed HD for 5 days 2. Severe Anemia with Hb 6.3- possible GI bleeding 3. ESRD on HD MWF 4. HTN 5. HL 6. 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 h/o Hypothyroidism Plan: plan is to exchange permacath today Plan is to HD today with 2 units pRBC BP stable afebrile Dw`Dr Deena Cosby Consultation Date/Type/Reason Admit Date/Time Apr 13, 2017 at 03:42 Initial Consult Date 04/13/17 Type of Consultation: NEPHROLOGY Referring Provider: LUIS ASHFORD MD 24 HR Interval Summary Free Text/Dictation 1400- patient is alert, awake, follows simple commands. - c/o cough- will order Robitussin, do CXR am - afebrile. BP stable -plan is to exchange permacath today - Plan is to HD today with 2 units pRBC Detailed Summary Respiratory: cough Cardiovascular: no complaints Gastrointestinal: no complaints Genitourinary: no complaints Musculoskeletal: no complaints Exam/Review of Systems Vital Signs Vitals Vital Signs Date Time Temp Pulse Resp B/P Pulse Ox O2 Delivery O2 Flow Rate FiO2 04/14/17 23:09 98.0 58 18 91/57 92 04/14/17 20:15 Nasal Cannula 2.0 04/13/17 03:33 28 Intake and Output 04/13/17 04/13/17 04/14/17 15:00 23:00 07:00 Intake Total 650 ml 300 ml Output Total 3510 ml Balance -2860 ml 300 ml Exam Constitutional: alert Respiratory: diminished breath sounds, normal air movement Cardiovascular: nl pulses, other (s1s2) Gastrointestinal: non-tender, soft Musculoskeletal: nl extremities to inspection Extremities: normal pulses Neurological: nl speech Results Result Diagram: 04/14/17 0639 04/14/17 0639 Results 24 hrs Laboratory Tests Test 04/14/17 05:41 04/14/17 06:39 Lab Scanned Report BLOOD TRANSFUSION White Blood Count 9.9 Red Blood Count 2.92 #L Hemoglobin 8.2 L Hematocrit 25.1 L Mean Corpuscular Volume 86.0 Mean Corpuscular Hemoglobin 28.1 L Mean Corpuscular Hemoglobin Concent 32.7 Red Cell Distribution Width 16.7 H Platelet Count 387 Mean Platelet Volume 8.9 Neutrophils % 76.5 Lymphocytes % 10.2 L Monocytes % 10.0 Eosinophils % 2.0 Basophils % 0.5 Nucleated Red Blood Cells % 0.0 Neutrophils # 7.6 H Lymphocytes # 1.0 Monocytes # 1.0 H Eosinophils # 0.2 Basophils # 0.1 Nucleated Red Blood Cells # 0.0 Absolute Reticulocyte Count 0.033 Percent Reticulocyte Count 1.2 Sodium Level 140 Potassium Level 4.0 Chloride Level 100 Carbon Dioxide Level 24 Anion Gap 20 H Blood Urea Nitrogen 60 H Creatinine 9.01 #H Glucose Level 87 Calcium Level 8.2 L Iron Level 11 L Total Iron Binding Capacity 139 L Percent Iron Saturation 8 L Ferritin 486.0 H Vitamin B12 Level 989 H Medications Medications Current Medications Ondansetron HCl (Zofran Inj) 4 mg Q6H PRN IV NAUSEA AND/OR VOMITING; Start at 05:00 Acetaminophen (Tylenol Tab) 650 mg Q6H PRN PO PAIN LEVEL 1-3 OR FEVER; Start 04/13/17 at 05:00 Morphine Sulfate (morphine) 2 mg Q4H PRN IV PAIN LEVEL 7-10; Start 04/13/17 at 05:00 Amlodipine Besylate (Norvasc) 10 mg DAILY PO ; Start 04/13/17 at 09:00 Finasteride (Proscar) 5 mg DAILY PO Last administered on 04/14/17 08:46; Admin Dose 5 MG; Start 04/13/17 at 09:00 Hydralazine HCl (Apresoline) 25 mg Q6 PO ; Start 04/13/17 at 06:00 Oxybutynin Chloride (Ditropan Xl) 10 mg DAILY PO Last administered on 08:46; Admin Dose 10 MG; Start 04/13/17 at 09:00 Pantoprazole (Protonix Tab) 40 mg DAILY@06 PO Last administered on 04/14/17 05:23; Admin Dose 40 MG; Start 04/14/17 at 06:00 Furosemide (Lasix) 40 mg DAILY@06 IV Last administered on 04/13/17 10:02; Admin Dose 40 MG; Start 04/13/17 at 06:00 Oxycodone/ Acetaminophen (Percocet (5/ 325)) 1 tab Q12H PRN PO PAIN Last administered on 04/14/17t 12:34; Admin Dose 1 TAB; Start 04/14/17 at 11:00 Guaifenesin/ Dextromethorphan (Robitussin Dm Liquid Cup) 10 ml Q6H PRN PO COUGH ; Start 04/14/17 at 14:00 NARCISO CRUZ Apr 14, 2017 23:49
[2017-04-15] VITALS (18 sets, daily range): BP systolic 97–121; BP diastolic 57–78; PULSE 54–69; RESP 16–19
[2017-04-15] MEDS: FUROSEMIDE 40 MG INJ IV SCH (06:00)
[2017-04-15] MEDS: LEVOTHYROXINE 50 MCG TAB PO SCH (06:16)
[2017-04-15] MEDS: PANTOPRAZOLE (EC) 40 MG TAB PO SCH (06:16)
[2017-04-15] MEDS: OXYCODONE/ACETAMINOPHEN (5/325) TAB PO PRN ×2 (06:20→18:03)
[2017-04-15] MEDS: AMLODIPINE 10 MG TAB PO SCH (08:10)
[2017-04-15] MEDS: OXYBUTYNIN (XL) 5 MG TAB PO SCH (08:10)
[2017-04-15] MEDS: FINASTERIDE 5 MG TAB PO SCH (08:11)
[2017-04-15 08:30] LABS: BASOPHILS % 0.5 % (0.0-2.0); EOSINOPHILS # 0.2 10^3/ul (0.0-0.5); EOSINOPHILS % 2.8 % (0.0-7.0); HEMATOCRIT 27.4 % (42.0-52.0); HEMOGLOBIN 8.8 g/dl (14.0-18.0); LYMPHOCYTES # 1.2 10^3/ul (0.8-2.9); LYMPHOCYTES % 15.1 % (15.0-51.0); MEAN CORPUSCULAR HEMOGLOBIN 27.8 pg (29.0-33.0); MEAN CORPUSCULAR HGB CONC 32.1 g/dl (32.0-37.0); MEAN CORPUSCULAR VOLUME 86.7 fl (82.0-101.0); MEAN PLATELET VOLUME 8.7 fl (7.4-10.4); MONOCYTE # 0.7 10^3/ul (0.3-0.9); MONOCYTES % 8.6 % (0.0-11.0); NEUTROPHIL # 5.8 10^3/ul (1.6-7.5); NEUTROPHILS % 71.3 % (39.0-77.0); PLATELET COUNT 396 10^3/UL (140-415); RED BLOOD COUNT 3.16 10^6/ul (4.70-6.10); RED CELL DISTRIBUTION WIDTH 16.1 % (11.5-14.5); WHITE BLOOD COUNT 8.2 10^3/ul (4.8-10.8)
[2017-04-15 08:45] LABS: CALCIUM 8.1 mg/dl (8.4-10.2); CREATININE 10.22 mg/dl (0.61-1.24)
--- NOTE | 2017-04-15 11:41 | CONS ---
Date/Time of Note Date/Time of Note DATE: 04/15/17 TIME: 11:41 Assessment/Plan Assessment/Plan Additional Assessment/Plan IMPRESSION: 1. Anemia needs to be ruled out, whether it is anemia of chronic disease or due to the occult gastrointestinal bleeding. 2. Renal failure on hemodialysis, did not have dialysis for the last 5 days. 3. Hypertension. 4. Malfunctioning of the dialysis catheter. 5. Hypothyroidism. 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 His anemia might be related to anemia of chronic disease or secondary to metastases in the bone. Awaiting for stool for occult blood Consultation Date/Type/Reason Admit Date/Time Apr 13, 2017 at 03:42 Initial Consult Date 04/13/17 Type of Consultation: NEPHROLOGY Referring Provider: LUIS ASHFORD MD 24 HR Interval Summary Free Text/Dictation Planes of bone pain Exam/Review of Systems Vital Signs Vitals Vital Signs Date Time Temp Pulse Resp B/P Pulse Ox O2 Delivery O2 Flow Rate FiO2 04/15/17 11:36 97.5 63 19 121/58 90 04/15/17 08:00 Nasal Cannula 2.0 04/13/17 03:33 28 Intake and Output 04/14/17 04/14/17 04/15/17 15:00 23:00 07:00 Intake Total 240 ml 300 ml 400 ml Balance 240 ml 300 ml 400 ml Exam Constitutional: alert, oriented, well developed Psych: nl mood/affect, no complaints Head: atraumatic, normocephalic Eyes: EOMI, PERRL, nl conjunctiva, nl lids, nl sclera ENMT: nl external ears & nose, nl lips & teeth, nl nasal mucosa & septum Neck: non-tender, supple Respiratory: clear to auscultation, normal air movement Cardiovascular: nl pulses, regular rate and rhythm Gastrointestinal: nl liver, spleen, non-tender, soft Musculoskeletal: nl extremities to inspection, nl gait and stance Extremities: normal pulses Neurological: POCKETBOOK MAKER II-XII intact, nl mental status, nl speech, nl strength Skin: nl turgor, No rash or lesions Lymph: nl lymph nodes Results Result Diagram: 04/15/17 0759 04/15/17 0759 Results 24 hrs Laboratory Tests Test 04/15/17 07:59 White Blood Count 8.2 Red Blood Count 3.16 L Hemoglobin 8.8 L Hematocrit 27.4 L Mean Corpuscular Volume 86.7 Mean Corpuscular Hemoglobin 27.8 L Mean Corpuscular Hemoglobin Concent 32.1 Red Cell Distribution Width 16.1 H Platelet Count 396 Mean Platelet Volume 8.7 Neutrophils % 71.3 Lymphocytes % 15.1 Monocytes % 8.6 Eosinophils % 2.8 Basophils % 0.5 Nucleated Red Blood Cells % 0.0 Neutrophils # 5.8 Lymphocytes # 1.2 Monocytes # 0.7 Eosinophils # 0.2 Basophils # 0.0 Nucleated Red Blood Cells # 0.0 Sodium Level 136 Potassium Level 4.0 Chloride Level 98 Carbon Dioxide Level 22 Anion Gap 20 H Blood Urea Nitrogen 68 H Creatinine 10.22 H Glucose Level 82 Calcium Level 8.1 L Medications Medications Current Medications Ondansetron HCl (Zofran Inj) 4 mg Q6H PRN IV NAUSEA AND/OR VOMITING; Start at 05:00 Acetaminophen (Tylenol Tab) 650 mg Q6H PRN PO PAIN LEVEL 1-3 OR FEVER; Start 04/13/17 at 05:00 Morphine Sulfate (morphine) 2 mg Q4H PRN IV PAIN LEVEL 7-10; Start 04/13/17 at 05:00 Amlodipine Besylate (Norvasc) 10 mg DAILY PO ; Start 04/13/17 at 09:00 Finasteride (Proscar) 5 mg DAILY PO Last administered on 04/15/17 08:11; Admin Dose 5 MG; Start 04/13/17 at 09:00 Hydralazine HCl (Apresoline) 25 mg Q6 PO ; Start 04/13/17 at 06:00 Oxybutynin Chloride (Ditropan Xl) 10 mg DAILY PO Last administered on 08:10; Admin Dose 10 MG; Start 04/13/17 at 09:00 Pantoprazole (Protonix Tab) 40 mg DAILY@06 PO Last administered on 04/15/17 06:16; Admin Dose 40 MG; Start 04/14/17 at 06:00 Furosemide (Lasix) 40 mg DAILY@06 IV Last administered on 04/13/17 10:02; Admin Dose 40 MG; Start 04/13/17 at 06:00 Oxycodone/ Acetaminophen (Percocet (5/ 325)) 1 tab Q12H PRN PO PAIN Last administered on 04/15/17t 06:20; Admin Dose 1 TAB; Start 04/14/17 at 11:00 Guaifenesin/ Dextromethorphan (Robitussin Dm Liquid Cup) 10 ml Q6H PRN PO COUGH ; Start 04/14/17 at 14:00 JEANNETTE MORALES MD Apr 15, 2017 11:41
--- NOTE | 2017-04-15 14:43 | PN ---
Date/Time of Note Date/Time of Note DATE: 04/15/17 TIME: 14:38 Assessment/Plan VTE Prophylaxis VTE Prophylaxis Intervention: SCD's Lines/Catheters IV Catheter Type (from Nrsg): Peripheral IV Urinary Cath still in place: No Assessment/Plan Assessment/Plan 76 yo M with ESRD on HD admitted for HD line malfunction, sp HD line exchange 04.12 PLAN PT eval to aid in discharge planning cont home meds, cont HD as per renal, anemia: labs with MIGNON. Of note, pt has know prostate Ca with bone mets. Unclear what the utility would be of an aggressive anemia w/u (ie endoscopy). FOBT pending. will dw pt and GI DISCHARGE PENDING PT EVAL, discussion with GI about anemia w/u will downgrade from tele to medsurg Subjective 24 Hr Interval Summary Free Text/Dictation resting Exam/Review of Systems Vital Signs Vitals Vital Signs Date Time Temp Pulse Resp B/P Pulse Ox O2 Delivery O2 Flow Rate FiO2 04/15/17 12:13 60 04/15/17 11:36 97.5 19 121/58 90 04/15/17 08:00 Nasal Cannula 2.0 04/13/17 03:33 28 Intake and Output 04/14/17 04/14/17 04/15/17 15:00 23:00 07:00 Intake Total 240 ml 300 ml 400 ml Balance 240 ml 300 ml 400 ml Exam nad no mrg lungs clear abd soft no rashes Results Result Diagram: 04/15/17 0759 04/15/17 0759 Results 24 hrs Laboratory Tests Test 04/15/17 07:59 White Blood Count 8.2 Red Blood Count 3.16 L Hemoglobin 8.8 L Hematocrit 27.4 L Mean Corpuscular Volume 86.7 Mean Corpuscular Hemoglobin 27.8 L Mean Corpuscular Hemoglobin Concent 32.1 Red Cell Distribution Width 16.1 H Platelet Count 396 Mean Platelet Volume 8.7 Neutrophils % 71.3 Lymphocytes % 15.1 Monocytes % 8.6 Eosinophils % 2.8 Basophils % 0.5 Nucleated Red Blood Cells % 0.0 Neutrophils # 5.8 Lymphocytes # 1.2 Monocytes # 0.7 Eosinophils # 0.2 Basophils # 0.0 Nucleated Red Blood Cells # 0.0 Sodium Level 136 Potassium Level 4.0 Chloride Level 98 Carbon Dioxide Level 22 Anion Gap 20 H Blood Urea Nitrogen 68 H Creatinine 10.22 H Glucose Level 82 Calcium Level 8.1 L Medications Medications Current Medications Ondansetron HCl (Zofran Inj) 4 mg Q6H PRN IV NAUSEA AND/OR VOMITING; Start at 05:00 Acetaminophen (Tylenol Tab) 650 mg Q6H PRN PO PAIN LEVEL 1-3 OR FEVER; Start 04/13/17 at 05:00 Morphine Sulfate (morphine) 2 mg Q4H PRN IV PAIN LEVEL 7-10; Start 04/13/17 at 05:00 Amlodipine Besylate (Norvasc) 10 mg DAILY PO ; Start 04/13/17 at 09:00 Finasteride (Proscar) 5 mg DAILY PO Last administered on 04/15/17 08:11; Admin Dose 5 MG; Start 04/13/17 at 09:00 Hydralazine HCl (Apresoline) 25 mg Q6 PO Last administered on 04/15/17 12:33 ; Admin Dose 25 MG; Start 04/13/17 at 06:00 Oxybutynin Chloride (Ditropan Xl) 10 mg DAILY PO Last administered on 08:10; Admin Dose 10 MG; Start 04/13/17 at 09:00 Pantoprazole (Protonix Tab) 40 mg DAILY@06 PO Last administered on 04/15/17 06:16; Admin Dose 40 MG; Start 04/14/17 at 06:00 Furosemide (Lasix) 40 mg DAILY@06 IV Last administered on 04/13/17 10:02; Admin Dose 40 MG; Start 04/13/17 at 06:00 Oxycodone/ Acetaminophen (Percocet (5/ 325)) 1 tab Q12H PRN PO PAIN Last administered on 04/15/17 06:20; Admin Dose 1 TAB; Start 04/14/17 at 11:00 Guaifenesin/ Dextromethorphan (Robitussin Dm Liquid Cup) 10 ml Q6H PRN PO COUGH ; Start 04/14/17 at 14:00 JULIO CESAR ROONEY MD Apr 15, 2017 14:42
--- NOTE | 2017-04-15 17:12 | CONS ---
Date/Time of Note Date/Time of Note DATE: 04/15/17 TIME: 17:10 Assessment/Plan Assessment/Plan Chief Complaint/Hosp Course 76-year-old male with a history of hypertension, hypothyroidism, ESRD on HD who was sent to the ER for dialysis catheter malfunction. Reportedly patient has not had a dialysis for 5 days. When he presented to the ER, potassium 5.9, BUN 88, creatinine 10.7, hemoglobin 8.9, bicarb 19. Chest x-ray showed Moderate failure versus volume overload. Patient is a little upset that the he is admitted. He said he was actually fully dialyzed the other day but according to SNF he was not dialyzed for about 5 days. plan is to do replacement of permacth then HD after that . Problems: Additional Assessment/Plan 1. Acute Hyperkalemia due to missed HD x 5 days 2. Dialysis catheter malfunction- missed HD for 5 days 2. Severe Anemia with Hb 6.3- possible GI bleeding 3. ESRD on HD MWF 4. HTN 5. HL 6. 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 h/o Hypothyroidism 8. Severe anemia s/p 2 Units PRBC during this dmission Plan: s/p New permacath, S/p HD today 3 L removed will keep pt on Saturday , and Saturday schedule will follow up GI followin g Consultation Date/Type/Reason Admit Date/Time Apr 13, 2017 at 03:42 Initial Consult Date 04/13/17 Type of Consultation: NEPHROLOGY Referring Provider: LUIS ASHFORD MD 24 HR Interval Summary Free Text/Dictation s/p HD today 3 L remove, BP stable Exam/Review of Systems Vital Signs Vitals Vital Signs Date Time Temp Pulse Resp B/P Pulse Ox O2 Delivery O2 Flow Rate FiO2 04/15/17 15:56 98.5 58 18 118/64 93 04/15/17 08:00 Nasal Cannula 2.0 04/13/17 03:33 28 Intake and Output 04/14/17 04/14/17 04/15/17 15:00 23:00 07:00 Intake Total 240 ml 300 ml 400 ml Balance 240 ml 300 ml 400 ml Exam Constitutional: alert Psych: no complaints Head: normocephalic Eyes: nl conjunctiva ENMT: nl external ears & nose Neck: non-tender, supple Respiratory: clear to auscultation, diminished breath sounds, normal air movement Cardiovascular: nl pulses, regular rate and rhythm Gastrointestinal: non-tender, soft Musculoskeletal: nl extremities to inspection, nl gait and stance Extremities: normal pulses Neurological: MEAT PRODUCTS DEMONSTRATOR II-XII intact, nl mental status, nl speech, nl strength Skin: nl turgor Results Result Diagram: 04/15/17 0759 04/15/17 0759 Results 24 hrs Laboratory Tests Test 04/15/17 07:59 White Blood Count 8.2 Red Blood Count 3.16 L Hemoglobin 8.8 L Hematocrit 27.4 L Mean Corpuscular Volume 86.7 Mean Corpuscular Hemoglobin 27.8 L Mean Corpuscular Hemoglobin Concent 32.1 Red Cell Distribution Width 16.1 H Platelet Count 396 Mean Platelet Volume 8.7 Neutrophils % 71.3 Lymphocytes % 15.1 Monocytes % 8.6 Eosinophils % 2.8 Basophils % 0.5 Nucleated Red Blood Cells % 0.0 Neutrophils # 5.8 Lymphocytes # 1.2 Monocytes # 0.7 Eosinophils # 0.2 Basophils # 0.0 Nucleated Red Blood Cells # 0.0 Sodium Level 136 Potassium Level 4.0 Chloride Level 98 Carbon Dioxide Level 22 Anion Gap 20 H Blood Urea Nitrogen 68 H Creatinine 10.22 H Glucose Level 82 Calcium Level 8.1 L Medications Medications Current Medications Ondansetron HCl (Zofran Inj) 4 mg Q6H PRN IV NAUSEA AND/OR VOMITING; Start at 05:00 Acetaminophen (Tylenol Tab) 650 mg Q6H PRN PO PAIN LEVEL 1-3 OR FEVER; Start 04/13/17 at 05:00 Morphine Sulfate (morphine) 2 mg Q4H PRN IV PAIN LEVEL 7-10; Start 04/13/17 at 05:00 Amlodipine Besylate (Norvasc) 10 mg DAILY PO ; Start 04/13/17 at 09:00 Finasteride (Proscar) 5 mg DAILY PO Last administered on 04/15/17 08:11; Admin Dose 5 MG; Start 04/13/17 at 09:00 Hydralazine HCl (Apresoline) 25 mg Q6 PO Last administered on 04/15/17 12:33 ; Admin Dose 25 MG; Start 04/13/17 at 06:00 Oxybutynin Chloride (Ditropan Xl) 10 mg DAILY PO Last administered on 08:10; Admin Dose 10 MG; Start 04/13/17 at 09:00 Pantoprazole (Protonix Tab) 40 mg DAILY@06 PO Last administered on 04/15/17 06:16; Admin Dose 40 MG; Start 04/14/17 at 06:00 Furosemide (Lasix) 40 mg DAILY@06 IV Last administered on 04/13/17 10:02; Admin Dose 40 MG; Start 04/13/17 at 06:00 Oxycodone/ Acetaminophen (Percocet (5/ 325)) 1 tab Q12H PRN PO PAIN Last administered on 04/15/17 06:20; Admin Dose 1 TAB; Start 04/14/17 at 11:00 Guaifenesin/ Dextromethorphan (Robitussin Dm Liquid Cup) 10 ml Q6H PRN PO COUGH ; Start 04/14/17 at 14:00 ANTONIO GUTIERREZ MD Apr 15, 2017 17:12
[2017-04-16 01:31] VITALS: BP 136/62; RESP 16
[2017-04-16] MEDS: PANTOPRAZOLE (EC) 40 MG TAB PO SCH (05:59)
[2017-04-16] MEDS: OXYCODONE/ACETAMINOPHEN (5/325) TAB PO PRN ×2 (06:01→17:57)
[2017-04-16] MEDS: LEVOTHYROXINE 50 MCG TAB PO SCH (06:01)
[2017-04-16] MEDS: FUROSEMIDE 40 MG INJ IV SCH (06:01)
[2017-04-16 06:29] LABS: BASOPHIL # 0.1 10^3/ul (0.0-0.1); BASOPHILS % 0.7 % (0.0-2.0); EOSINOPHILS # 0.3 10^3/ul (0.0-0.5); EOSINOPHILS % 3.5 % (0.0-7.0); HEMATOCRIT 28.3 % (42.0-52.0); HEMOGLOBIN 8.9 g/dl (14.0-18.0); LYMPHOCYTES # 1.8 10^3/ul (0.8-2.9); LYMPHOCYTES % 21.7 % (15.0-51.0); MEAN CORPUSCULAR HEMOGLOBIN 27.6 pg (29.0-33.0); MEAN CORPUSCULAR HGB CONC 31.4 g/dl (32.0-37.0); MEAN CORPUSCULAR VOLUME 87.6 fl (82.0-101.0); MEAN PLATELET VOLUME 9.3 fl (7.4-10.4); MONOCYTE # 0.8 10^3/ul (0.3-0.9); NEUTROPHILS % 61.4 % (39.0-77.0); PLATELET COUNT 393 10^3/UL (140-415); RED BLOOD COUNT 3.23 10^6/ul (4.70-6.10); RED CELL DISTRIBUTION WIDTH 16.1 % (11.5-14.5); WHITE BLOOD COUNT 8.2 10^3/ul (4.8-10.8)
[2017-04-16 07:19] LABS: CALCIUM 7.8 mg/dl (8.4-10.2); CREATININE 8.13 mg/dl (0.61-1.24); POTASSIUM 4.1 mmol/L (3.5-5.1)
[2017-04-16 07:32] VITALS: BP 114/65; RESP 20
[2017-04-16] MEDS: OXYBUTYNIN (XL) 5 MG TAB PO SCH (08:11)
[2017-04-16] MEDS: FINASTERIDE 5 MG TAB PO SCH (08:12)
[2017-04-16] MEDS: AMLODIPINE 10 MG TAB PO SCH (09:00)
--- NOTE | 2017-04-16 13:37 | CONS ---
Date/Time of Note Date/Time of Note DATE: 04/16/17 TIME: 13:37 Assessment/Plan Assessment/Plan Additional Assessment/Plan Additional Assessment/Plan IMPRESSION: 1. Anemia needs to be ruled out, whether it is anemia of chronic disease or due to the occult gastrointestinal bleeding. 2. Renal failure on hemodialysis, did not have dialysis for the last 5 days. 3. Hypertension. 4. Malfunctioning of the dialysis catheter. 5. Hypothyroidism. 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 His anemia might be related to anemia of chronic disease or secondary to metastases in the bone. stool for occult blood reported negative Consultation Date/Type/Reason Admit Date/Time Apr 13, 2017 at 03:42 Initial Consult Date 04/13/17 Type of Consultation: NEPHROLOGY Referring Provider: LUIS ASHFORD MD 24 HR Interval Summary Constitutional: improved Exam/Review of Systems Vital Signs Vitals Vital Signs Date Time Temp Pulse Resp B/P Pulse Ox O2 Delivery O2 Flow Rate FiO2 04/16/17 09:49 04/16/17 07:32 98.3 62 20 114/65 99 04/13/17 03:33 28 Intake and Output 04/15/17 04/15/17 04/16/17 15:00 23:00 07:00 Intake Total 300 ml 480 ml Output Total 3300 ml Balance -3000 ml 480 ml Exam Constitutional: alert, oriented, well developed Psych: nl mood/affect, no complaints Head: atraumatic, normocephalic Eyes: EOMI, PERRL, nl conjunctiva, nl lids, nl sclera ENMT: nl external ears & nose, nl lips & teeth, nl nasal mucosa & septum Neck: non-tender, supple Respiratory: clear to auscultation, normal air movement Cardiovascular: nl pulses, regular rate and rhythm Gastrointestinal: nl liver, spleen, non-tender, soft Musculoskeletal: nl extremities to inspection, nl gait and stance Extremities: normal pulses Neurological: DISPLAY ARTIST II-XII intact, nl mental status, nl speech, nl strength Skin: nl turgor, No rash or lesions Lymph: nl lymph nodes Results Result Diagram: 04/16/17 0421 04/16/17 0421 Results 24 hrs Laboratory Tests Test 04/16/17 04:21 04/16/17 05:18 White Blood Count 8.2 Red Blood Count 3.23 L Hemoglobin 8.9 L Hematocrit 28.3 L Mean Corpuscular Volume 87.6 Mean Corpuscular Hemoglobin 27.6 L Mean Corpuscular Hemoglobin Concent 31.4 L Red Cell Distribution Width 16.1 H Platelet Count 393 Mean Platelet Volume 9.3 Neutrophils % 61.4 Lymphocytes % 21.7 Monocytes % 10.0 Eosinophils % 3.5 Basophils % 0.7 Nucleated Red Blood Cells % 0.0 Neutrophils # 5.0 Lymphocytes # 1.8 Monocytes # 0.8 Eosinophils # 0.3 Basophils # 0.1 Nucleated Red Blood Cells # 0.0 Sodium Level 140 Potassium Level 4.1 Chloride Level 101 Carbon Dioxide Level 25 Anion Gap 18 H Blood Urea Nitrogen 52 H Creatinine 8.13 #H Glucose Level 81 Calcium Level 7.8 L Stool Occult Blood NEGATIVE Medications Medications Current Medications Ondansetron HCl (Zofran Inj) 4 mg Q6H PRN IV NAUSEA AND/OR VOMITING; Start at 05:00 Acetaminophen (Tylenol Tab) 650 mg Q6H PRN PO PAIN LEVEL 1-3 OR FEVER; Start 04/13/17 at 05:00 Morphine Sulfate (morphine) 2 mg Q4H PRN IV PAIN LEVEL 7-10; Start 04/13/17 at 05:00 Amlodipine Besylate (Norvasc) 10 mg DAILY PO ; Start 04/13/17 at 09:00 Finasteride (Proscar) 5 mg DAILY PO Last administered on 04/16/17 08:12; Admin Dose 5 MG; Start 04/13/17 at 09:00 Hydralazine HCl (Apresoline) 25 mg Q6 PO Last administered on 04/16/17 12:53 ; Admin Dose 25 MG; Start 04/13/17 at 06:00 Oxybutynin Chloride (Ditropan Xl) 10 mg DAILY PO Last administered on 08:11; Admin Dose 10 MG; Start 04/13/17 at 09:00 Pantoprazole (Protonix Tab) 40 mg DAILY@06 PO Last administered on 04/16/17 05:59; Admin Dose 40 MG; Start 04/14/17 at 06:00 Furosemide (Lasix) 40 mg DAILY@06 IV Last administered on 04/16/17 06:01; Admin Dose 40 MG; Start 12/23/17 at 06:00 Oxycodone/ Acetaminophen (Percocet (5/ 325)) 1 tab Q12H PRN PO PAIN Last administered on 04/16/17 06:01; Admin Dose 1 TAB; Start 04/14/17 at 11:00 Guaifenesin/ Dextromethorphan (Robitussin Dm Liquid Cup) 10 ml Q6H PRN PO COUGH ; Start 04/14/17 at 14:00 JEANNETTE MORALES MD Apr 16, 2017 13:37
[2017-04-16 14:20] VITALS: BP 121/63; RESP 20
--- NOTE | 2017-04-16 15:20 | PN ---
Date/Time of Note Date/Time of Note DATE: 04/16/17 TIME: 15:16 Assessment/Plan VTE Prophylaxis VTE Prophylaxis Intervention: SCD's Lines/Catheters IV Catheter Type (from Nrsg): Permcath Urinary Cath still in place: No Assessment/Plan Assessment/Plan 76 yo M with ESRD on HD admitted for HD line malfunction, sp HD line exchange 12. PLAN PT advising SNF cont home meds, cont HD as per renal, anemia: labs with MIGNON. Of note, pt has know prostate Ca with bone mets. Unclear what the utility would be of an aggressive anemia w/u (ie endoscopy). FOBT neg. Left message with GI to discuss discussion with GI about anemia w/u CM cs for SNF Subjective 24 Hr Interval Summary Free Text/Dictation sleeping Exam/Review of Systems Vital Signs Vitals Vital Signs Date Time Temp Pulse Resp B/P Pulse Ox O2 Delivery O2 Flow Rate FiO2 04/16/17 14:20 98.2 57 20 121/63 96 04/16/17 09:49 04/13/17 03:33 28 Intake and Output 04/15/17 04/15/17 04/16/17 15:00 23:00 07:00 Intake Total 300 ml 480 ml Output Total 3300 ml Balance -3000 ml 480 ml Exam sleeping nad no mrg lungs clear abd soft no rashes FOBT neg Results Result Diagram: 04/16/1742004/16/17 0421 Results 24 hrs Laboratory Tests Test 04/16/17 04:21 04/16/17 05:18 White Blood Count 8.2 Red Blood Count 3.23 L Hemoglobin 8.9 L Hematocrit 28.3 L Mean Corpuscular Volume 87.6 Mean Corpuscular Hemoglobin 27.6 L Mean Corpuscular Hemoglobin Concent 31.4 L Red Cell Distribution Width 16.1 H Platelet Count 393 Mean Platelet Volume 9.3 Neutrophils % 61.4 Lymphocytes % 21.7 Monocytes % 10.0 Eosinophils % 3.5 Basophils % 0.7 Nucleated Red Blood Cells % 0.0 Neutrophils # 5.0 Lymphocytes # 1.8 Monocytes # 0.8 Eosinophils # 0.3 Basophils # 0.1 Nucleated Red Blood Cells # 0.0 Sodium Level 140 Potassium Level 4.1 Chloride Level 101 Carbon Dioxide Level 25 Anion Gap 18 H Blood Urea Nitrogen 52 H Creatinine 8.13 #H Glucose Level 81 Calcium Level 7.8 L Stool Occult Blood NEGATIVE Medications Medications Current Medications Ondansetron HCl (Zofran Inj) 4 mg Q6H PRN IV NAUSEA AND/OR VOMITING; Start at 05:00 Acetaminophen (Tylenol Tab) 650 mg Q6H PRN PO PAIN LEVEL 1-3 OR FEVER; Start 04/13/17 at 05:00 Morphine Sulfate (morphine) 2 mg Q4H PRN IV PAIN LEVEL 7-10; Start 04/13/17 at 05:00 Amlodipine Besylate (Norvasc) 10 mg DAILY PO ; Start 04/13/17 at 09:00 Finasteride (Proscar) 5 mg DAILY PO Last administered on 04/16/17 08:12; Admin Dose 5 MG; Start 04/13/17 at 09:00 Hydralazine HCl (Apresoline) 25 mg Q6 PO Last administered on 04/16/17 12:53 ; Admin Dose 25 MG; Start 04/13/17 at 06:00 Oxybutynin Chloride (Ditropan Xl) 10 mg DAILY PO Last administered on 08:11; Admin Dose 10 MG; Start 04/13/17 at 09:00 Pantoprazole (Protonix Tab) 40 mg DAILY@06 PO Last administered on 04/16/17 05:59; Admin Dose 40 MG; Start 04/14/17 at 06:00 Furosemide (Lasix) 40 mg DAILY@06 IV Last administered on 04/16/17 06:01; Admin Dose 40 MG; Start 04/13/17 at 06:00 Oxycodone/ Acetaminophen (Percocet (5/ 325)) 1 tab Q12H PRN PO PAIN Last administered on 04/16/17 06:01; Admin Dose 1 TAB; Start 04/14/17 at 11:00 Guaifenesin/ Dextromethorphan (Robitussin Dm Liquid Cup) 10 ml Q6H PRN PO COUGH ; Start 04/14/17 at 14:00 JULIO CESAR ROONEY MD Apr 16, 2017 15:20
[2017-04-16] MEDS: FUROSEMIDE 40 MG TAB PO SCH (17:55)
[2017-04-16 20:33] VITALS: BP 120/87; RESP 18
--- NOTE | 2017-04-16 21:37 | CONS ---
Date/Time of Note Date/Time of Note DATE: 04/16/17 TIME: 21:35 Assessment/Plan Assessment/Plan Additional Assessment/Plan 1. Acute Hyperkalemia due to missed HD x 5 days 2. Dialysis catheter malfunction- missed HD for 5 days 2. Severe Anemia with Hb 6.3- s/p PRBC transfusion 3. ESRD on HD MWF 4. HTN 5. HL 6. 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 h/o Hypothyroidism 8. Severe anemia s/p 2 Units PRBC during this dmission Plan: s/p New permacath, S/p HD yesterday 3 L removed - will plan for Hd tomorrow will keep pt on Saturday , and Saturday schedule will follow up GI followin g Consultation Date/Type/Reason Admit Date/Time Apr 13, 2017 at 03:42 Initial Consult Date 04/13/17 Type of Consultation: NEPHROLOGY Referring Provider: LUIS ASHFORD MD 24 HR Interval Summary Free Text/Dictation plan for HD tomorrow, Bp stable Exam/Review of Systems Vital Signs Vitals Vital Signs Date Time Temp Pulse Resp B/P Pulse Ox O2 Delivery O2 Flow Rate FiO2 04/16/17 20:33 98.3 63 18 120/87 95 04/16/17 09:49 04/13/17 03:33 28 Intake and Output 04/15/17 04/15/17 04/16/17 15:00 23:00 07:00 Intake Total 300 ml 480 ml Output Total 3300 ml Balance -3000 ml 480 ml Exam Constitutional: alert Respiratory: clear to auscultation, diminished breath sounds, normal air movement Cardiovascular: nl pulses, regular rate and rhythm Gastrointestinal: non-tender, soft Musculoskeletal: nl extremities to inspection, nl gait and stance Extremities: normal pulses Neurological: INSTRUMENT AND CONTROL SERVICE PERSON II-XII intact, nl mental status, nl speech, nl strength Skin: nl turgor Results Result Diagram: 04/16/1742004/16/17420 Results 24 hrs Laboratory Tests Test 04/16/17 04:21 04/16/17 05:18 White Blood Count 8.2 Red Blood Count 3.23 L Hemoglobin 8.9 L Hematocrit 28.3 L Mean Corpuscular Volume 87.6 Mean Corpuscular Hemoglobin 27.6 L Mean Corpuscular Hemoglobin Concent 31.4 L Red Cell Distribution Width 16.1 H Platelet Count 393 Mean Platelet Volume 9.3 Neutrophils % 61.4 Lymphocytes % 21.7 Monocytes % 10.0 Eosinophils % 3.5 Basophils % 0.7 Nucleated Red Blood Cells % 0.0 Neutrophils # 5.0 Lymphocytes # 1.8 Monocytes # 0.8 Eosinophils # 0.3 Basophils # 0.1 Nucleated Red Blood Cells # 0.0 Sodium Level 140 Potassium Level 4.1 Chloride Level 101 Carbon Dioxide Level 25 Anion Gap 18 H Blood Urea Nitrogen 52 H Creatinine 8.13 #H Glucose Level 81 Calcium Level 7.8 L Stool Occult Blood NEGATIVE Medications Medications Current Medications Ondansetron HCl (Zofran Inj) 4 mg Q6H PRN IV NAUSEA AND/OR VOMITING; Start at 05:00 Acetaminophen (Tylenol Tab) 650 mg Q6H PRN PO PAIN LEVEL 1-3 OR FEVER; Start 04/13/17 at 05:00 Morphine Sulfate (morphine) 2 mg Q4H PRN IV PAIN LEVEL 7-10; Start 04/13/17 at 05:00 Amlodipine Besylate (Norvasc) 10 mg DAILY PO ; Start 04/13/17 at 09:00 Finasteride (Proscar) 5 mg DAILY PO Last administered on 04/16/17 08:12; Admin Dose 5 MG; Start 04/13/17 at 09:00 Hydralazine HCl (Apresoline) 25 mg Q6 PO Last administered on 04/16/17 17:55 ; Admin Dose 25 MG; Start 04/13/17 at 06:00 Oxybutynin Chloride (Ditropan Xl) 10 mg DAILY PO Last administered on 08:11; Admin Dose 10 MG; Start 04/13/17 at 09:00 Pantoprazole (Protonix Tab) 40 mg DAILY@06 PO Last administered on 04/16/17 05:59; Admin Dose 40 MG; Start 04/14/17 at 06:00 Oxycodone/ Acetaminophen (Percocet (5/ 325)) 1 tab Q12H PRN PO PAIN Last administered on 04/16/17 17:57; Admin Dose 1 TAB; Start 04/14/17 at 11:00 Guaifenesin/ Dextromethorphan (Robitussin Dm Liquid Cup) 10 ml Q6H PRN PO COUGH ; Start 04/14/17 at 14:00 ANTONIO GUTIERREZ MD Apr 16, 2017 21:37
[2017-04-17] VITALS (11 sets, daily range): BP systolic 108–121; BP diastolic 53–66; PULSE 53–61; RESP 16–20
[2017-04-17 05:54] LABS: BASOPHIL # 0.1 10^3/ul (0.0-0.1); BASOPHILS % 0.9 % (0.0-2.0); EOSINOPHILS # 0.5 10^3/ul (0.0-0.5); EOSINOPHILS % 5.3 % (0.0-7.0); HEMATOCRIT 30.3 % (42.0-52.0); HEMOGLOBIN 9.6 g/dl (14.0-18.0); LYMPHOCYTES % 21.7 % (15.0-51.0); MEAN CORPUSCULAR HEMOGLOBIN 27.7 pg (29.0-33.0); MEAN CORPUSCULAR HGB CONC 31.7 g/dl (32.0-37.0); MEAN CORPUSCULAR VOLUME 87.6 fl (82.0-101.0); MEAN PLATELET VOLUME 8.7 fl (7.4-10.4); MONOCYTE # 0.8 10^3/ul (0.3-0.9); MONOCYTES % 8.7 % (0.0-11.0); NEUTROPHIL # 5.5 10^3/ul (1.6-7.5); NEUTROPHILS % 60.4 % (39.0-77.0); PLATELET COUNT 422 10^3/UL (140-415); POSITIVE DIFF @See below; RED BLOOD COUNT 3.46 10^6/ul (4.70-6.10); RED CELL DISTRIBUTION WIDTH 15.9 % (11.5-14.5); WHITE BLOOD COUNT 9.1 10^3/ul (4.8-10.8)
[2017-04-17] MEDS: OXYCODONE/ACETAMINOPHEN (5/325) TAB PO PRN (06:09)
[2017-04-17] MEDS: PANTOPRAZOLE (EC) 40 MG TAB PO SCH (06:09)
[2017-04-17] MEDS: LEVOTHYROXINE 50 MCG TAB PO SCH (06:10)
[2017-04-17] MEDS: FUROSEMIDE 40 MG TAB PO SCH ×2 (06:12→18:11)
[2017-04-17 06:56] LABS: CALCIUM 7.6 mg/dl (8.4-10.2); CREATININE 9.35 mg/dl (0.61-1.24); POTASSIUM 4.6 mmol/L (3.5-5.1)
[2017-04-17] MEDS: OXYBUTYNIN (XL) 5 MG TAB PO SCH (08:37)
[2017-04-17] MEDS: FINASTERIDE 5 MG TAB PO SCH (08:37)
[2017-04-17] MEDS: AMLODIPINE 10 MG TAB PO SCH (08:38)
--- NOTE | 2017-04-17 11:17 | DS ---
Date/Time of Note Date/Time of Note DATE: 04/17/17 TIME: 11:12 Discharge Summary Admission/Discharge Info Admit Date/Time Apr 13, 2017 at 03:42 Discharge Date/Time Discharge Diagnosis HD catheter malfunction sp replacement, normocytic anemia (likely 2/2 multifactorial combination of MIGNON, ESRD and metastatic prostate CA) Patient Condition: Stable Consults nephrology, vascular surgery, GI Procedures 04.13 PROCEDURE: 1. SVC venogram. 2. Catheter-directed access of the SVC. 3. Venoplasty of the right internal jugular vein, right brachiocephalic vein, right superior vena cava (multiple venous angioplasties). 4. Tunneled permanent hemodialysis catheter exchange. LABS hgb on admission 6.9, MCV 89 FOBT negative iron level <10 b12 989 retic count inappropriately normal Hx of Present Illness This is a 76-year-old male with a history of hypertension, hypothyroidism, ESRD on HD who was sent to the ER for dialysis catheter malfunction. Reportedly patient has not had a dialysis for 5 days. When he presented to the ER, potassium 5.9, BUN 88, creatinine 10.7, hemoglobin 8.9, bicarb 19. Chest x-ray showed Moderate failure versus volume overload. Patient is a little upset that the he is admitted. He said he was actually fully dialyzed the other day but according to SNF he was not dialyzed for about 5 days. Hospital Course 76 yo M with ESRD on HD admitted for HD line malfunction, sp HD line exchange 04.12. Admit labs also notable for normocytic anemia with hgb 6.9, MCV 89. Pt transfused with appropriate hgb response. GI consulted. Given pt's comorbidities , endoscopy deferred. FOBT negative. Labs revealed significant MIGNON likely 2/2 his ESRD, and metastatic prostate ca. I spoke with GI 04.16, and no further w/u was advised at this time. Pt started on PO iron. No other changes from admit meds. Pt to continue to f/u with his PCP who is also cc'ed on this note. Home Meds Reported Medications Finasteride* (Finasteride*) 5 Mg Tablet, 5 MG PO DAILY, TAB 04/13/17 Oxybutynin Chloride* (Ditropan* XL) 10 Mg Tab.er.24, 10 MG PO DAILY, TAB.SA 04/13/17 Omeprazole* (Omeprazole*) 20 Mg Capsule.dr, 20 MG PO DAILY, #30 CAP 04/13/17 Losartan-Hydrochlorothiazide (Losartan-HCTZ) 50-12.5 Mg Tab, 1 TAB PO DAILY, TAB 04/13/17 Amlodipine Besylate* (Amlodipine Besylate*) 10 Mg Tablet, 10 MG PO DAILY, #30 TAB 04/13/17 Furosemide* (Furosemide*) 20 Mg Tablet, 20 MG PO DAILY, #60 TAB 04/13/17 Levothyroxine Sodium* (Levothyroxine Sodium*) 50 Mcg Tablet, 50 MCG PO BEFORE BREAKFAST, #30 TAB 04/13/17 Hydralazine Hcl* (Hydralazine Hcl*) 25 Mg Tab, 25 MG PO Q6, #120 TAB 04/13/17 Follow-up Plan back to [facility] Primary Care Provider Antonio Gutierrez MD Time spent on discharge: > 30 minutes Pending Labs Laboratory Tests Test 04/17/17 05:24 White Blood Count 9.110^3/ul (4.8-10.8) Red Blood Count 3.4610^6/ul (4.70-6.10) Hemoglobin 9.6g/dl (14.0-18.0) Hematocrit 30.3% (42.0-52.0) Mean Corpuscular Volume 87.6fl (82.0-101.0) Mean Corpuscular Hemoglobin 27.7pg (29.0-33.0) Mean Corpuscular Hemoglobin Concent 31.7g/dl (32.0-37.0) Red Cell Distribution Width 15.9% (11.5-14.5) Platelet Count 80870^3/UL (140-415) Mean Platelet Volume 8.7fl (7.4-10.4) Neutrophils % 60.4% (39.0-77.0) Lymphocytes % 21.7% (15.0-51.0) Monocytes % 8.7% (0.0-11.0) Eosinophils % 5.3% (0.0-7.0) Basophils % 0.9% (0.0-2.0) Nucleated Red Blood Cells % 0.0/100WBC (0.0-0.0) Neutrophils # 5.510^3/ul (1.6-7.5) Lymphocytes # 2.010^3/ul (0.8-2.9) Monocytes # 0.810^3/ul (0.3-0.9) Eosinophils # 0.510^3/ul (0.0-0.5) Basophils # 0.110^3/ul (0.0-0.1) Nucleated Red Blood Cells # 0.010^3/ul (0.0-0.0) Sodium Level 138mmol/L (135-144) Potassium Level 4.6mmol/L (3.5-5.1) Chloride Level 98mmol/L (97-110) Carbon Dioxide Level 22mmol/L (21-31) Anion Gap 23 (8-16) Blood Urea Nitrogen 60mg/dl (7-20) Creatinine 9.35mg/dl (0.61-1.24) Glucose Level 92mg/dl (70-220) Calcium Level 7.6mg/dl (8.4-10.2) Copies To: CC: JEANNETTE MORALES MD; ANTONIO GUTIERREZ MD, ELLEN MD Apr 17, 2017 11:17
--- NOTE | 2017-04-17 12:56 | CONS ---
Date/Time of Note Date/Time of Note DATE: 04/17/17 TIME: 12:55 Assessment/Plan Assessment/Plan Additional Assessment/Plan 1. Acute Hyperkalemia due to missed HD x 5 days 2. Dialysis catheter malfunction- missed HD for 5 days 2. Severe Anemia with Hb 6.3- s/p PRBC transfusion 3. ESRD on HD MWF 4. HTN 5. HL 6. 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 h/o Hypothyroidism 8. Severe anemia s/p 2 Units PRBC during this dmission Plan: s/p New permacath, [facility] for hd TODAY, OK to d/c to SNF after HD will keep pt on Saturday , and Saturday schedule will follow up Consultation Date/Type/Reason Admit Date/Time Apr 13, 2017 at 03:42 Initial Consult Date 04/13/17 Type of Consultation: NEPHROLOGY Referring Provider: LUIS ASHFORD MD 24 HR Interval Summary Free Text/Dictation plan for HD today, possible d/c to SNF today Exam/Review of Systems Vital Signs Vitals Vital Signs Date Time Temp Pulse Resp B/P Pulse Ox O2 Delivery O2 Flow Rate FiO2 04/17/17 07:39 98.3 59 20 121/65 96 04/17/17 00:34 3.0 04/16/17 20:15 Nasal Cannula Intake and Output 04/16/17 04/16/17 04/17/17 15:00 23:00 07:00 Intake Total 740 ml 400 ml Output Total 2 ml Balance 740 ml 398 ml Exam Constitutional: alert Respiratory: clear to auscultation, diminished breath sounds, normal air movement Cardiovascular: nl pulses, regular rate and rhythm Gastrointestinal: non-tender, soft Musculoskeletal: nl extremities to inspection, nl gait and stance Extremities: normal pulses 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, nl mental status, nl speech, nl strength Skin: nl turgor Results Result Diagram: 04/17/1752304/17/17523 Results 24 hrs Laboratory Tests Test 04/17/17 05:24 White Blood Count 9.1 Red Blood Count 3.46 L Hemoglobin 9.6 L Hematocrit 30.3 L Mean Corpuscular Volume 87.6 Mean Corpuscular Hemoglobin 27.7 L Mean Corpuscular Hemoglobin Concent 31.7 L Red Cell Distribution Width 15.9 H Platelet Count 422 H Mean Platelet Volume 8.7 Neutrophils % 60.4 Lymphocytes % 21.7 Monocytes % 8.7 Eosinophils % 5.3 Basophils % 0.9 Nucleated Red Blood Cells % 0.0 Neutrophils # 5.5 Lymphocytes # 2.0 Monocytes # 0.8 Eosinophils # 0.5 Basophils # 0.1 Nucleated Red Blood Cells # 0.0 Sodium Level 138 Potassium Level 4.6 Chloride Level 98 Carbon Dioxide Level 22 Anion Gap 23 H Blood Urea Nitrogen 60 H Creatinine 9.35 H Glucose Level 92 Calcium Level 7.6 L Medications Medications Current Medications Ondansetron HCl (Zofran Inj) 4 mg Q6H PRN IV NAUSEA AND/OR VOMITING; Start at 05:00 Acetaminophen (Tylenol Tab) 650 mg Q6H PRN PO PAIN LEVEL 1-3 OR FEVER; Start 04/13/17 at 05:00 Morphine Sulfate (morphine) 2 mg Q4H PRN IV PAIN LEVEL 7-10; Start 04/13/17 at 05:00 Amlodipine Besylate (Norvasc) 10 mg DAILY PO ; Start 04/13/17 at 09:00 Finasteride (Proscar) 5 mg DAILY PO Last administered on 04/17/17 08:37; Admin Dose 5 MG; Start 04/13/17 at 09:00 Hydralazine HCl (Apresoline) 25 mg Q6 PO Last administered on 04/17/17 06:12 ; Admin Dose 25 MG; Start 04/13/17 at 06:00 Oxybutynin Chloride (Ditropan Xl) 10 mg DAILY PO Last administered on 08:37; Admin Dose 10 MG; Start 04/13/17 at 09:00 Pantoprazole (Protonix Tab) 40 mg DAILY@06 PO Last administered on 04/17/17 06:09; Admin Dose 40 MG; Start 04/14/17 at 06:00 Oxycodone/ Acetaminophen (Percocet (5/ 325)) 1 tab Q12H PRN PO PAIN Last administered on 04/17/17 06:09; Admin Dose 1 TAB; Start 04/14/17 at 11:00 Guaifenesin/ Dextromethorphan (Robitussin Dm Liquid Cup) 10 ml Q6H PRN PO COUGH ; Start 04/14/17 at 14:00 ANTONIO GUTIERREZ MD Apr 17, 2017 12:56
--- NOTE | 2017-04-17 14:53 | PN ---
Date/Time of Note Date/Time of Note DATE: 04/17/17 TIME: 14:50 Assessment/Plan Lines/Catheters IV Catheter Type (from [facility]): Permacath Arana in Place (from [facility]): No Assessment/Plan Chief Complaint/Hosp Course -End-stage renal disease and central stenosis: It seems the patient's catheter has malfunctioned and patient unfortunately has not received dialysis for 5 days. Further, the patient is noncompliant and sometimes challenging, as he does not necessarily follow recommendations and take care of his health. The patient has been a smoker also in the past and upon our previous evaluation at outside hospital, patient had significant central stenosis in which he had underwent central venoplasty and intervention at that time. Unfortunately, the patient seems to have a catheter malfunction which is unclear if the patient has been, after his dialysis sessions, receiving adequate flushing of the catheter with saline and adequate heparin not being placed in the ports at his dialysis center. -S/P Perm catheter exchange and central venoplasty -Cleared from vascular standpoint for follow up for an eventual access creation -Optimize vascular status (BP meds, diet, nutrition, exercise, sugar control, antiplatelets). -Discussed the importance of compliance and smoking cessation and all the necessary information has been provided for the patient. -Discussed findings, plan and management with the patient and all that is involved patient understood and has agreed to proceed. Total spent time was greater than 25 minutes. -Thank you for allowing us to partake in the care of your patient. Please call with any questions. Problems: Subjective 24 Hr Interval Summary no new vascular events overnight Exam/Review of Systems Vital Signs Vitals Vital Signs Date Time Temp Pulse Resp B/P Pulse Ox O2 Delivery O2 Flow Rate FiO2 04/17/17 07:39 98.3 59 20 121/65 96 04/17/17 00:34 3.0 04/16/17 20:15 Nasal Cannula Intake and Output 04/16/17 04/16/17 04/17/17 15:00 23:00 07:00 Intake Total 740 ml 400 ml Output Total 2 ml Balance 740 ml 398 ml Exam Free Text/Dictation GENERAL: Alert and oriented x3, PULMONARY: coarse breath sounds bilaterally. CARDIOVASCULAR: S1, S2 present. No murmurs. ABDOMEN: Soft, nontender, nondistended. Bowel sounds positive. Surgical scar well healed. EXTREMITIES: Lower extremities, palpable femoral pulse, nonpalpable pedal pulse. Motor, sensory intact. Cap refill 3 to 4 seconds. No ulcers identified. Right chest wall catheter intact and functional, no erythema or pus identified. Results Result Diagram: 04/17/1752304/17/1724 DARLINE CANCINO MD Apr 17, 2017 14:53
[2017-04-17] MEDS ORDERED: FER325 PO (15:20)
[2017-04-17] MEDS ORDERED: HEPARIN 1000 UNITS/ML 10 ML INJ CATHETER ONE ×2 (15:30)
== END 2017-04-17 20:15 | DRG 252 ==
LOC: E/R 19:46 → MS3 04-13 03:42 → MS1 04-13 04:53 → TEL 04-13 17:15 → MS1 04-15 16:45
PROVIDERS: ADMIT Internal Medicine; ATTEND Internal Medicine
PROC: 057D3ZZ Dilation of Right Cephalic Vein, Percutaneous Approach (ICD-10-PCS; 2017-04-13)
PROC: 027V3ZZ Dilation of Superior Vena Cava, Percutaneous Approach (ICD-10-PCS; 2017-04-13)
PROC: 0J2VXYZ Change Other Device in Upper Extremity Subcutaneous Tissue and Fascia, External Approach (ICD-10-PCS; 2017-04-13)
PROC: 30283B1 Transfusion of Nonautologous 4-Factor Prothrombin Complex Concentrate into Vein, Percutaneous Approach (ICD-10-PCS; 2017-04-13)
PROC: 5A1D70Z Performance of Urinary Filtration, Intermittent, Less than 6 Hours Per Day (ICD-10-PCS; 2017-04-13)
PROC: 05793ZZ Dilation of Right Brachial Vein, Percutaneous Approach (ICD-10-PCS; principal; 2017-04-13 14:00)
PROC: 5A1D70Z Performance of Urinary Filtration, Intermittent, Less than 6 Hours Per Day (ICD-10-PCS; 2017-04-15)
PROC: 5A1D70Z Performance of Urinary Filtration, Intermittent, Less than 6 Hours Per Day (ICD-10-PCS; 2017-04-17)
DX: T82.41XA Breakdown (mechanical) of vascular dialysis catheter, initial encounter (principal); N18.6 End stage renal disease; I12.0 Hypertensive chronic kidney disease with stage 5 chronic kidney disease or end stage renal disease; C79.51 Secondary malignant neoplasm of bone; I87.1 Compression of vein; D63.1 Anemia in chronic kidney disease; Z99.2 Dependence on renal dialysis; Y71.8 Miscellaneous cardiovascular devices associated with adverse incidents, not elsewhere classified; E03.9 Hypothyroidism, unspecified; E87.5 Hyperkalemia; E78.5 Hyperlipidemia, unspecified; Z85.46 Personal history of malignant neoplasm of prostate; Z90.79 Acquired absence of other genital organ(s); I25.10 Atherosclerotic heart disease of native coronary artery without angina pectoris; E78.00 Pure hypercholesterolemia, unspecified
CPT/HCPCS: 36415; 36430; 71010; 80048; 80053; 82270; 82607; 82728; 83540; 83735; 85014; 85018; 85025; 85045; 85610; 85730; 86850; 86900; 86901; 86920; 87081; 90686; 90935; 93005; 94664; 96374; 96375; 97110; 97162; 97530; C1752; J0690; J1644; J1815; J1940; J2250; J3010; J7040; J7042; P9016; P9047; Q9967